=== PATIENT | female | born 1965 | race African-American/Black ===

== ENCOUNTER 2017-04-01 14:01 | Inpatient (IN) ==
[2017-04-01 15:11] LABS: Basophils % 0.2 % (0.0-0.8); Eosinophils # 0.1 10*3/uL (0.0-0.87); Eosinophils % 0.6 % (0.00-10.9); Hematocrit 39.8 VOL% (35.7-47.0); Hemoglobin 13.2 GM/DL (12.0-16.0); Immature Granulocytes % 0.5 %; Immature Granulocytes Absolute 0.09 #; Lymphocytes # 2.5 10*3/uL (1.4-4.0); Lymphocytes % 13.7 % (21.3-54.2); Mean Corpuscular HGB Conc 33.2 GM/DL (32-36); Mean Corpuscular Hemoglobin 30 PG (27-34); Mean Corpuscular Volume 91.3 FL (87-102); Mean Platelet Volume 9.1 FL (9.6-12.0); Monocytes # 1.2 10*3/uL (0.11-0.8); Monocytes % 6.7 % (1.7-12.7); Neutrophils # 14.5 10*3/uL (1.4-7.4); Neutrophils % 78.3 % (38.7-73.9); Platelet Count 276 T/CUMM (130-400); Red Blood Count 4.36 MC/CUMM (3.8-5.5); Red Cell Distribution Width 14.5 % (9.3-17.3); White Blood Count 18.5 T/CUMM (4-12)
[2017-04-01 15:31] LABS: Calcium 9.8 MG/DL (8.5-10.1); Osmolality,Calculated 272.1 MOS/KG (273-304); Potassium 4.5 MMOL/L (3.5-5.1)
[2017-04-01] MEDS ORDERED: SODIUM CHLORIDE 0.9% 1,000 ML IV STA (15:32)
[2017-04-01] MEDS ORDERED: METOPROLOL TARTRATE 5 MG/5 ML VIAL IV STA (15:34)
[2017-04-01] MEDS ORDERED: DILTIAZEM 50 MG/10 ML VIAL IV STA (15:36)
[2017-04-01] MEDS ORDERED: METOPROLOL TARTRATE 5 MG/5 ML VIAL IV ONE (15:41)
[2017-04-01] MEDS ORDERED: DILTIAZEM 50 MG/10 ML VIAL IV ONE (15:41)
--- NOTE | 2017-04-01 15:43 | Fluoroscopy Report ---
Referring Physician: Hill Kay Exam: FL injection GI tube Date: April 01, 2017 at 2:53 PM Reason: Check peg tube, leaking around site, possible infection Comparison: None Findings: 4 images of the abdomen were provided before and after injection of a gastrostomy tube with water-soluble contrast. There is contrast within the stomach. No extraluminal contrast is seen to suggest a leak. There is no evidence of bowel obstruction or free air. The renal shadows are largely obscured. No free air is identified. No acute osseous process is seen, but there is a right hip replacement. Scattered arterial calcification is noted. Impression: A gastrostomy tube was injected with contrast. There is no evidence of a leak on the provided images. PROCEDURE INTERPRETED AT [facility] DEPARTMENT OF RADIOLOGY Final Report Signed by: Dr. Adina Velasco
--- NOTE | 2017-04-01 15:45 | XRay Report ---
Referring Physician: Hill aKy Exam: XR chest 1V portable Date: April 01, 2017 at 2:58 PM Reason: Shortness of breath Comparison: Chest one view portable February 27, 2017 Findings: The cardiac silhouette is again mildly enlarged, and there is calcified plaque at the thoracic aorta. There are minimal scattered opacities within both lower lung zones. This likely represents atelectasis, but pneumonia is not excluded. No pneumothorax is identified. No acute osseous process is seen. Impression: 1. Mild cardiomegaly. 2. There are minimal scattered opacities within both lower lung zones. This likely represents atelectasis, but pneumonia is not excluded. PROCEDURE INTERPRETED AT [facility] DEPARTMENT OF RADIOLOGY Final Report Signed by: Dr. Adina Velasco
[2017-04-01] MEDS ORDERED: KETOROLAC 30 MG/1 ML VIAL ONE (16:02)
--- NOTE | 2017-04-01 16:33 | Hospitalist History & Physical ---
Assessment and Plan (1) Sepsis Status: Acute Assessment and plan: Impression: 1. Sepsis, likely source is infected gastrostomy tube. 2. Paroxysmal atrial fibrillation 3. 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 Persistent vegetative state Plan: Volume resuscitation. Cultures. IV antibiotics once cultures have been obtained. I discussed resuscitation with the sister. There is apparently some miscommunication with the emergency department staff. She has requested that the patient be a full code. Therefore, we will admit the patient to the ICU. This note was completed using TapMyBack voice recognition software. There may be waste removalist errors as a result. Current Visit: Yes Qualifiers: Sepsis type: sepsis due to unspecified organism Qualified Code(s): A41.9 - Sepsis, unspecified organism History of Present Illness Chief complaint: Sent out from intermediate for evaluation of tachycardia History of present illness: Ms. Loera is a 51 year old female She has a long history of bipolar disorder hypertension. 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 Following surgery, she had a stroke or intraoperative hemorrhage, and has been bedbound ever since. The sister gives a history, and reports that the patient was in the hospital for about 6 weeks following the craniotomy, and then came back to [place] for swing bed placement. Since then, she has been back and forth to a couple of different nursing homes, the [facility] bed twice, and here at this hospital several times for acute hospitalizations. Her last hospitalization here was back in January, when she was admitted for aspiration pneumonia. During that time, she also had atrial fibrillation. She was sent back to a different intermediate, and developed tachycardia and hypertension. The patient was sent to the emergency room at the sister's request. The sister is the closest relative in town; the patient's son is power of state attorney and he lives in [place]. The patient's baseline is that she is apparently able to recognize family members, and the sister says that the patient is conversant. Home Medications Medication Instructions Recorded Confirmed Type Albuterol/Ipratropium Neb [Duoneb] 3 ml RESP TX RT Q6H PRN 01/14/17 04/01/17 History Famotidine Tab [Pepcid Tab] 20 mg PEG BID 01/14/17 04/01/17 History Insulin Regular [HumuLIN R] See Protocol SUBCUT Q6HR unit 02/10/17 04/01/17 Rx Rivaroxaban [Xarelto] 20 mg PEG DAILY W/SUPPER tablet 02/10/17 04/01/17 Rx Acetaminophen [Mapap] 650 mg PO Q4H PRN 04/01/17 04/01/17 History Ascorbic Acid Tab [Vitamin C Tab] 1,000 mg PEG BID 04/01/17 04/01/17 History Digoxin Tab [Lanoxin Tab] 0.25 mg PEG DAILY@1300 04/01/17 04/01/17 History Metoprolol Tartrate 100 mg PEG 0900,1300,1700 04/01/17 04/01/17 History Phenytoin 200 mg PEG BID 04/01/17 04/01/17 History Zinc Oxide 40% Paste [Desitin 13% 1 applic TOP BID 04/01/17 04/01/17 History Paste] amLODIPine [Norvasc] 10 mg PEG DAILY 04/01/17 04/01/17 History Allergies Allergy/AdvReac Type Severity Reaction Status Date / Time No Known Allergies Allergy Verified 12/20/15 15:41 Medical,Surgical,& Family Hx - Medical History Cardio: History of: Cardiac Dysrhythmia, Hypertension No history of: CHF, CAD, [place], Pacemaker, PVD Psychological: History of: Bipolar Disorder, Schizophrenia Neurology: History of: Cerebrovascular Accident, Seizures No history of: TIA Endocrine: History of: Diabetes Mellitus (IDDM), Dyslipidemia Respiratory: History of: Asthma, COPD (Family reports that the patient was diagnosed with COPD prior to the cranio) Renal: No history of: Renal Failure Gastrointestinal: History of: GERD, Gastrointestinal Bleed (reported gi bleed and to have c scope in nov) Musculoskeletal: History of: Amputation, Back/Neck Problems (back pain) Hematology: History of: Anemia - Surgical History Cardiac Surgeries: Patient Denies: Cardiac Catheterization Thoracic Surgeries: Patient denies;: Lobectomy Neurologic Surgeries: Surgical HX of: Neurologic Surgery (Craniotomy for a cystic lesion complicated by intraoperative stroke) HEENT Surgeries: Patient denies: Tonsilectomy & Adenoidectomy Abdominal Surgeries: Patient denies: Abdominal Surgery Reproductive Surgeries: Surgical HX of;: Gynecologic Surgery, Hysterectomy Orthopedic Surgeries: Surgical HX of;: Total Hip Replacement (right) - Family History Family History: Reports;: Family Cancer, Family Diabetes, Family Heart Disease ( mother and father), Family Hypertension Denies;: Family Anesthesia Reaction, Family Psychiatric Problems, Family Stroke - Social History Smoking Status: Current every day smoker Review of systems: Unobtainable from the patient. Sister reports a history of bipolar disorder that has been poorly controlled and has required a couple of hospitalizations. Blood pressure had been adequately controlled prior to the craniotomy. No history of heart disease or diabetes. No history of kidney disease or liver disease. Exam - Constitutional Vitals: Period Temp Pulse Resp BP Sys/Wagner Pulse Ox Last 24 Hr 98.8 F 127 28 174/127 95 Vital signs are noted above. General: She is a obese black lady who does not interact with the external environment. HEENT: Pupils are round and reactive. Extraocular muscles are normal. Gaze is conjugate with a right-sided preference. Fundi were not examined. There is no nasal discharge. Mucous membranes are moist. Neck: Supple, without mass, bruit, or venous distention. Cardiac: Rhythm is regular and rapid. The carotids are normal. She has a 2/6 systolic ejection murmur. I do not hear a diastolic component. Peripheral pulses are intact. Lungs: Bilateral rhonchi without wheezing. Abdomen: Soft and nontender. Bowel sounds are present. PEG site is draining mucopurulent material around the tube. Rectal: Not done. Extremities: She is wearing bilateral heel protectors. Skin: No significant rash or lesion. Neurologic: She appears to have suffered some anoxic brain injury or a serious cerebral infarction. She exhibits a left-sided hemiparesis. Higher cortical functioning could not be tested. Results - Labs CBC & BMP: 04/01/17 14:22 04/01/17 14:22 - Diagnostic Findings Procedure: Chest x-ray: image reviewed by me (No large infiltrates on chest x- ray. She may have some small areas of atelectasis)
[2017-04-01 16:59] LABS: Apearance,Urine Slightly Hazy (Clear); Bacteria,Urine Occasional /HPF (Few); Bilirubin,Urine Negative (Negative); Blood, Urine Negative (Negative); Glucose,Urine (UA) Negative (Negative); Ketones,Urine Negative (Negative); Nitrite,Urine Negative (Negative); Protein,Urine 30 MG/DL; RBC,Urine 4 /HPF (0-4); Squamous Epithelial Cell,Urine Occasional /HPF (0-10); Urine Color Amber (Yellow); Urine Specific Gravity 1.018 (1.001-1.035); WBC,Urine 43 /HPF (0-6)
--- NOTE | 2017-04-01 17:44 | Emergency Department Note ---
IMarita Gwan, am scribing for, and in the presence of, Hill Kay M.D. 14:36. Eliza Romo Howard T, M.D., personally performed the services described in this documentation, ascribed by Asad Kirkland in my presence, and it is both accurate and complete [id number] . Arrival - Arrival Chief Complaint: PEG TUBE Stated Complaint: PEG tub ED Nursing Triage Note: Pt sent from [facility] for ?infection around PEG Tube site. [facility] [place] [facility] staff reported it was painful today attempting feeding to patient and also has bloody drainage around the PEG site. Mode of Arrival: Stretcher Limitations: No Limitations Source: Patient, Old Records Reviewed, RN Notes Reviewed Time Seen by Provider: 04/01/17 14:14 - History of Present Illness HPI Narrative: Pt is a 51 y/o female who was brought into the ED via EMS from [facility] in [place] for further evaluation of possible infection around Peg Tube. ID staff reported that pt has been complaining of pain around Peg Tube and evidence of blood draining from the site. Patient is a poor historian and is accompanied by family. Family stated that ID staff informed her that pt was unable to get medication or receive feeding prompting her to alert EMS. Family member confirmed that pt suffered a CVA and cyst on brain in 10/2016 causing her condition today. Pt has a PMHx of HTN, cardiac dysrhythmia, bipolar disorder, CVA, seizures, schizophrenia, IDDM, asthma, dyslipidemia, total right hip replacement and anemia. Onset (ago): hour(s) Consistency: constant Severity: moderate Allergies/Adverse Reactions: Allergies Allergy/AdvReac Type Severity Reaction Status Date / Time No Known Allergies Allergy Verified 12/20/15 15:41 Home Medications: Home Medications Medication Instructions Recorded Confirmed Type Albuterol/Ipratropium Neb [Duoneb] 3 ml RESP TX RT Q6H PRN 01/14/17 04/01/17 History Famotidine Tab [Pepcid Tab] 20 mg PEG BID 01/14/17 04/01/17 History Insulin Regular [HumuLIN R] See Protocol SUBCUT Q6HR unit 02/10/17 04/01/17 Rx Rivaroxaban [Xarelto] 20 mg PEG DAILY W/SUPPER tablet 02/10/17 04/01/17 Rx Acetaminophen [Mapap] 650 mg PO Q4H PRN 04/01/17 04/01/17 History Ascorbic Acid Tab [Vitamin C Tab] 1,000 mg PEG BID 04/01/17 04/01/17 History Digoxin Tab [Lanoxin Tab] 0.25 mg PEG DAILY@1300 04/01/17 04/01/17 History Metoprolol Tartrate 100 mg PEG 0900,1300,1700 04/01/17 04/01/17 History Phenytoin 200 mg PEG BID 04/01/17 04/01/17 History Zinc Oxide 40% Paste [Desitin 13% 1 applic TOP BID 04/01/17 04/01/17 History Paste] amLODIPine [Norvasc] 10 mg PEG DAILY 04/01/17 04/01/17 History Review of System - Review of System ROS unobtainable: due to mental status Medical,Surgical,& Family Hx - Medical History Cardio: History of: Cardiac Dysrhythmia, Hypertension No history of: CHF, CAD, [place], Pacemaker, PVD Psychological: History of: Bipolar Disorder, Schizophrenia Neurology: History of: Cerebrovascular Accident, Seizures No history of: TIA Endocrine: History of: Diabetes Mellitus (IDDM), Dyslipidemia Respiratory: History of: Asthma Comment Only: COPD (was marked but per family not sure) Renal: No history of: Renal Failure Gastrointestinal: History of: GERD, Gastrointestinal Bleed (reported gi bleed and to have c scope in nov) Musculoskeletal: History of: Amputation, Back/Neck Problems (back pain) Hematology: History of: Anemia - Surgical History Cardiac Surgeries: Patient Denies: Cardiac Catheterization Thoracic Surgeries: Patient denies;: Lobectomy HEENT Surgeries: Patient denies: Tonsilectomy & Adenoidectomy Abdominal Surgeries: Patient denies: Abdominal Surgery Reproductive Surgeries: Surgical HX of;: Gynecologic Surgery, Hysterectomy Orthopedic Surgeries: Surgical HX of;: Total Hip Replacement (right) - Family History Family History: Reports;: Family Cancer, Family Diabetes, Family Heart Disease ( mother and father), Family Hypertension Denies;: Family Anesthesia Reaction, Family Psychiatric Problems, Family Stroke - Social History Smoking Status: Current every day smoker Exam Vital Signs: Vital Signs Temperature 101.3 F H 04/01/17 14:10 Pulse Rate 149 H 04/01/17 17:00 Respiratory Rate 22 04/01/17 17:00 Blood Pressure 209/127 04/01/17 17:00 O2 Sat by Pulse Oximetry 90 L 04/01/17 17:00 - General General appearance: alert - Head Head exam: Present: atraumatic, normocephalic - Cardiovascular Cardiovascular exam: Present: tachycardia - Abdominal Exam Abdominal exam: Present: soft, other (peg tube present ) - Neurological Exam Neurological exam: Present: alert Course Course Narrative: Medical decision making: Patient admitted to hospital service for further evaluation and monitoring. Results - Labs CBC & BMP: 04/01/17 14:22 04/01/17 14:22 Lab Results: I have reviewed the patients labs Labs: Laboratory Tests 04/01/17 04/01/17 04/01/17 14:22 14:22 14:51 WBC 18.5 H RBC 4.36 Hgb 13.2 Hct 39.8 Plt Count 276 MPV 9.1 L Neut % (Auto) 78.3 H Lymph % (Auto) 13.7 L Neut # (Auto) 14.5 H Stearns # (Auto) 1.2 H Sodium 135 L Potassium 4.5 Chloride 98 Carbon Dioxide 28 Creatinine 0.30 L BUN/Creatinine Ratio 53.00 H Glucose 130 H POC Glucose 122 H Calculated Osmolality 272.1 L Calcium 9.8 Magnesium 2.0 Laboratory Tests 04/01/17 15:54 Lactic Acid 2.4 H - Diagnostic Findings Procedure: Chest x-ray: report reviewed by me (1. Mild cardiomegaly. 2. There are minimal scattered opacities within both lower lung zones. This likely represents atelectasis, but pneumonia is not excluded. ) Disposition Clinical Impression: PEG (percutaneous endoscopic gastrostomy) status, Bedridden, Sepsis Case discussed with: patient, patient's family Disposition: Disch/Xfer-Ipshort Term Hos Condition: Guarded Time of Disposition: 16:45
[2017-04-01] MEDS ORDERED: VANCOMYCIN INJ 1,250 MG in SODIUM CHLORIDE 0.9% 250 ML IV SCH (18:00)
[2017-04-01] MEDS ORDERED: ALBUTEROL/IPRATROPIUM 3 ML NEB RESP TX PRN (18:02)
[2017-04-01] MEDS: niCARdipine INJ 25 MG in SODIUM CHLORIDE 0.9% 240 ML IV SCH ×2 (18:19→23:15)
[2017-04-01] MEDS: VANCOMYCIN INJ 1,250 MG in SODIUM CHLORIDE 0.9% 250 ML IV SCH (18:41)
[2017-04-01] MEDS: SODIUM CHLORIDE 0.9% 1,000 ML IV SCH (18:59)
[2017-04-01] MEDS: ACETAMINOPHEN 325 MG TABLET PO PRN ×2 (19:04→23:42)
[2017-04-01] MEDS: INSULIN REGULAR 100 UNIT/ML SUBCUT SCH (19:05)
[2017-04-01] MEDS: RIVAROXABAN 20 MG TABLET PEG SCH (19:05)
[2017-04-01] MEDS: PIPERACILLIN/TAZOBACTAM 3,375 MG in SODIUM CHLORIDE 0.9% 100 ML IV SCH (20:22)
[2017-04-01] MEDS: FAMOTIDINE 20 MG TABLET PEG SCH (20:28)
[2017-04-01] MEDS: ASCORBIC ACID 500 MG TABLET PEG SCH (20:28)
[2017-04-01] MEDS: PHENYTOIN 100 MG/4 ML UDCUP PEG SCH (20:28)
[2017-04-01] MEDS ORDERED: MORPHINE 2 MG/1 ML SYRINGE ONE (22:49)
[2017-04-01] MEDS: MORPHINE 10 MG/1 ML VIAL IV PRN (22:52)
[2017-04-02] MEDS: INSULIN REGULAR 100 UNIT/ML SUBCUT SCH ×4 (01:52→19:09)
[2017-04-02] MEDS: VANCOMYCIN INJ 1,250 MG in SODIUM CHLORIDE 0.9% 250 ML IV SCH ×3 (02:50→17:06)
[2017-04-02] MEDS: SODIUM CHLORIDE 0.9% 1,000 ML IV SCH ×3 (02:52→13:01)
[2017-04-02] MEDS: PIPERACILLIN/TAZOBACTAM 3,375 MG in SODIUM CHLORIDE 0.9% 100 ML IV SCH ×2 (04:09→12:51)
[2017-04-02 05:21] LABS: Basophils % 0.1 % (0.0-0.8); Hematocrit 33.4 VOL% (35.7-47.0); Hemoglobin 10.7 GM/DL (12.0-16.0); Immature Granulocytes % 0.9 %; Immature Granulocytes Absolute 0.23 #; Mean Corpuscular Hemoglobin 30 PG (27-34); Mean Corpuscular Volume 93.3 FL (87-102); Mean Platelet Volume 9.4 FL (9.6-12.0); Monocytes # 1.8 10*3/uL (0.11-0.8); Neutrophils # 22.6 10*3/uL (1.4-7.4); Platelet Count 227 T/CUMM (130-400); Red Blood Count 3.58 MC/CUMM (3.8-5.5); Red Cell Distribution Width 14.8 % (9.3-17.3); White Blood Count 25.7 T/CUMM (4-12)
[2017-04-02 05:57] LABS: Albumin 2.2 G/DL (3.4-5.0); Bilirubin,Total 1.2 MG/DL (0.2-1.0); Calcium 8.5 MG/DL (8.5-10.1); Osmolality,Calculated 285.3 MOS/KG (273-304); Potassium 4.5 MMOL/L (3.5-5.1); Total Protein 5.3 G/DL (6.4-8.3)
[2017-04-02] MEDS ORDERED: MORPHINE 2 MG/1 ML SYRINGE ONE ×2 (06:01→15:28)
[2017-04-02] MEDS: MORPHINE 10 MG/1 ML VIAL IV PRN ×5 (06:05→23:26)
[2017-04-02 06:10] LABS: Band Neutrophils 4 % (0-10); Hypochromasia 1+; Lymphocytes 4 % (20-55); Ovalocytes Slight; Platelet Estimate Adequate; Segmented Neutrophils 86 % (50-85); Total Cells Counted 100
[2017-04-02] MEDS: ACETAMINOPHEN 325 MG TABLET PO PRN (06:42)
[2017-04-02] MEDS: ASCORBIC ACID 500 MG TABLET PEG SCH ×2 (09:47→20:27)
[2017-04-02] MEDS: FAMOTIDINE 20 MG TABLET PEG SCH ×2 (09:48→20:27)
[2017-04-02] MEDS: PHENYTOIN 100 MG/4 ML UDCUP PEG SCH ×2 (09:59→20:27)
--- NOTE | 2017-04-02 10:10 | Gastrointestinal Consult Note ---
Assessment and Plan (1) Skin infection at gastrostomy tube site Status: Acute Assessment and plan: Radiology is established that this feeding tube goes into the stomach and has no significant evidence of a leak. The feeding tube was placed approximately 6 months ago and appears to be relatively fresh. With the antibiotics previously given to this patient there is no evidence of cellulitis presently. Given the patient's increase in white blood cell count I suspect that this PEG tube may not be the actual source of the patient's leukocytosis. It appears to be back to normal again at this point and with I will rising white blood cell count I would not expect this to look as improved as it does. The feeding tube can be used for all nutritional, medication and hydration needs at this point. Thank you for consulting me. Please let me know if I can be of further help in the future. Current Visit: Yes (2) Attention to gastrostomy tube Status: Acute Assessment and plan: The PEG tube does not appear infected at this point it should be able to use continue sustaining a patient for medication hydration and nutritional needs, as mentioned above. Current Visit: Yes (3) Dysphagia Status: Acute Assessment and plan: The patient is in a persistent vegetative state likely due to the mass removed with the patient's craniotomy or from the craniotomy procedure itself. She requires feeding through a PEG tube and this is already been provided at [facility] approximately 6 months ago. Continue use of the PEG tube as prior to admission. Current Visit: Yes (4) Morbid obesity Status: Acute Assessment and plan: The patient appears to be quite sizable, a consultation from dietary may help trim down the amount of tube feeds given in order to lose some of this excess weight. Current Visit: Yes (5) Gastroesophageal reflux disease Status: Acute Assessment and plan: This patient has a history of reflux not surprising given her size. Continue treatment as needed for this condition. Current Visit: No History of Present Illness Chief complaint: Infected PEG tube now resolved History of present illness: Ms. Loera is a 51 year old female who is in a persistent vegetative state due to either complications or directly from a mass that required surgery at [facility] approximately 6 months ago requiring a 6 weeks hospitalization following the craniotomy. Patient was brought back to [facility] to a swing bed. Patient has a history of atrial fibrillation and has recurrent episodes of tachycardia and hypertension. She has a underlying history of bipolar disorder as well. Apparently she is brought to the hospital at this time with a septic type picture and cellulitis noted around the feeding tube. Radiology has already injected the tube with contrast which confirmed that it is in the stomach. Apparently there was a great deal of drainage from the tube yesterday and a marked cellulitis that has at this point responded to antibiotics. The PEG tube itself now spends well and appears to be normal with a scant amount of mucoid drainage around the tube, as is typically seen. The tube itself flushes well and aspirates gastric contents. It appears to be fully functional. White count today is up to 25.7 (from 18.5 on admission), while the hematocrit is dropped from 39.8 on admission to 33.4 with hydration. Unfortunately the PEG tube site was not cultured. Bilirubin and alkaline phosphatase are very slightly elevated at 1.2 and 205 respectively. The albumin is down to 2.2 indicating probable mild malnutrition. We do not know what the other findings of the upper endoscopy were from [facility] (? Gastritis or duodenitis?). We do not know if this patient has previously had a colonoscopy done, or whether she has diarrhea or constipation or abdominal pain at baseline. Home Medications Medication Instructions Recorded Confirmed Type Albuterol/Ipratropium Neb [Duoneb] 3 ml RESP TX RT Q6H PRN 01/14/17 04/01/17 History Famotidine Tab [Pepcid Tab] 20 mg PEG BID 01/14/17 04/01/17 History Insulin Regular [HumuLIN R] See Protocol SUBCUT Q6HR unit 02/10/17 04/01/17 Rx Rivaroxaban [Xarelto] 20 mg PEG DAILY W/SUPPER tablet 02/10/17 04/01/17 Rx Acetaminophen [Mapap] 650 mg PO Q4H PRN 04/01/17 04/01/17 History Ascorbic Acid Tab [Vitamin C Tab] 1,000 mg PEG BID 04/01/17 04/01/17 History Digoxin Tab [Lanoxin Tab] 0.25 mg PEG DAILY@1300 04/01/17 04/01/17 History Metoprolol Tartrate 100 mg PEG 0900,1300,1700 04/01/17 04/01/17 History Phenytoin 200 mg PEG BID 04/01/17 04/01/17 History Zinc Oxide 40% Paste [Desitin 13% 1 applic TOP BID 04/01/17 04/01/17 History Paste] amLODIPine [Norvasc] 10 mg PEG DAILY 04/01/17 04/01/17 History Allergies Allergy/AdvReac Type Severity Reaction Status Date / Time No Known Allergies Allergy Verified 12/20/15 15:41 Medical,Surgical,& Family Hx - Medical History Cardio: History of: Cardiac Dysrhythmia, Hypertension No history of: CHF, CAD, [place], Pacemaker, PVD Psychological: History of: Bipolar Disorder, Schizophrenia Neurology: History of: Cerebrovascular Accident, Seizures No history of: TIA Endocrine: History of: Diabetes Mellitus (IDDM), Dyslipidemia Respiratory: History of: Asthma Comment Only: COPD (was marked but per family not sure) Renal: No history of: Renal Failure Gastrointestinal: History of: GERD, Gastrointestinal Bleed (reported gi bleed and to have c scope in nov) Musculoskeletal: History of: Amputation, Back/Neck Problems (back pain) Hematology: History of: Anemia - Surgical History Cardiac Surgeries: Patient Denies: Cardiac Catheterization Thoracic Surgeries: Patient denies;: Lobectomy Neurologic Surgeries: Surgical HX of: Neurologic Surgery (Craniotomy for a cystic lesion complicated by intraoperative stroke) HEENT Surgeries: Patient denies: Tonsilectomy & Adenoidectomy Abdominal Surgeries: Patient denies: Abdominal Surgery Reproductive Surgeries: Surgical HX of;: Gynecologic Surgery, Hysterectomy Orthopedic Surgeries: Surgical HX of;: Total Hip Replacement (right) - Family History Family History: Reports;: Family Cancer, Family Diabetes, Family Heart Disease ( mother and father), Family Hypertension Denies;: Family Anesthesia Reaction, Family Psychiatric Problems, Family Stroke - Social History Smoking Status: Former smoker Frequency of Alcohol Use: None Type of Drug Use: None ROS unobtainable: due to mental status Exam - Constitutional Vitals: Period Temp Pulse Resp BP Sys/Wagner Pulse Ox Last 24 Hr 99.6 F-102.8 F 127-150 22-40 95-209/53-127 86-100 General appearance: morbidly obese - Head Head exam: Present: other (Craniotomy scars) - Eye Eye exam: Present: other (Eyes both appear to be with upward gaze preference each pointed to the temporal side laterally/disconjugate gaze) Pupils: Present: RANDALL - ENT ENT exam: Present: normal exam - Respiratory Respiratory exam: Present: clear to auscultation bilaterally. Absent: rales, rhonchi, stridor - Cardiovascular Cardiovascular exam: Present: regular rate and rhythm - GI/Abdominal GI/Abdominal exam: Present: normal bowel sounds, soft, other (Morbidly obese with a left upper abdominal lateral PEG tube noted. There is no erythema underneath this but a small amount of drainage that appears to be mucoid is associated with this. It does spin well and appears to be a fresh PEG tube). Absent: distended, tenderness, rebound - Extremities Exam Extremities exam: Present: edema (Slight) - Neurological Exam Neurological exam: Present: altered (Patient is in a persistent vegetative state /nonverbal) - Psychiatric Psychiatric exam: Present: flat affect - Skin Skin exam: Present: warm Results - Labs CBC & BMP: 04/02/17 04:39 04/02/17 04:39
[2017-04-02] MEDS ORDERED: FUROSEMIDE 40 MG/4 ML VIAL IV ONE (12:50)
[2017-04-02] MEDS: DIGOXIN 0.125 MG TABLET PEG SCH (12:51)
[2017-04-02] MEDS: amLODIPine 10 MG TABLET PEG SCH (12:52)
[2017-04-02] MEDS: METOPROLOL TARTRATE 100 MG TABLET PEG SCH ×2 (12:52→17:06)
--- NOTE | 2017-04-02 12:53 | Hospitalist Progress Note ---
Assessment and Plan (1) Sepsis Status: Acute Assessment and plan: The patient will be treated with vancomycin and meropenem for treatment of presumed septicemia. Blood cultures and urine cultures are still pending. I am going to change Cardene to Cardizem to improve control of heart rate and blood pressure. Tube feedings will be restarted, and the patient's right reducing medications will be restarted. Current Visit: Yes Qualifiers: Sepsis type: sepsis due to unspecified organism Qualified Code(s): A41.9 - Sepsis, unspecified organism (2) Morbid obesity Status: Acute Current Visit: Yes (3) PEG (percutaneous endoscopic gastrostomy) status Status: Acute Current Visit: Yes (4) History of stroke with current residual effects Status: Chronic Current Visit: No Hospitalist: Subjective Interval history: The patient was admitted to the hospital with sepsis syndrome. The patient has underlying atrial flutter tendency and she appears to be in a 3:1 block at this time. The patient's source of infection is not entirely clear. Dr. Crawford was concerned that it could be coming from the G-tube site but that looks much better today. Urine does appear to be cloudy and the patient has a history of upper respiratory infection with sputum cultures growing Pseudomonas resistant to Cipro and Levaquin. The patient is awake and unresponsive to the observer. Exam - Constitutional Vitals: Period Temp Pulse Resp BP Sys/Wagner Pulse Ox Last 24 Hr 98.1 F-102.8 F 108-150 18-40 95-209/53-138 86-100 Exam: Constitutional System: No distress. No tremulousness. The patient is awake but does not regard the observer Head: Normocephalic, atraumatic. Ears, Nose and Throat System: No evidence of Otitis or Mastoiditis. No epistaxis or discharge Eyes System: Pupils equal, round, and reactive. Extraocular muscles intact. Neck: Supple, without adenopathy, No jugular venous distention. No thyromegaly , neck mass, or prior surgery apparent. Respiratory System: Chest generally clear with minimal upper airway congestion to auscultation. Cardiovascular System: Heart with regular tachycardia at rate of 100-120; monitor shows supraventricular tachycardia. No murmur. GI System: Abdomen soft, nontender. Normo active bowel sounds present. PEG tube in place and functional with minimal drainage at site PEG tube Musculoskeletal System: limbs with no pedal edema. Full distal pulses. Results - Labs CBC & BMP: 04/02/17 04:39 04/02/17 04:39 Lab Results: I have reviewed the past 24 hour labs
[2017-04-02] MEDS: MEROPENEM 1,000 MG in SODIUM CHLORIDE 0.9% 100 ML IV SCH (13:00)
[2017-04-02] MEDS: RIVAROXABAN 20 MG TABLET PEG SCH (17:06)
[2017-04-03] MEDS: INSULIN REGULAR 100 UNIT/ML SUBCUT SCH ×5 (00:44→23:49)
[2017-04-03] MEDS: MEROPENEM 1,000 MG in SODIUM CHLORIDE 0.9% 100 ML IV SCH ×2 (01:13→13:31)
[2017-04-03] MEDS: VANCOMYCIN INJ 1,250 MG in SODIUM CHLORIDE 0.9% 250 ML IV SCH ×2 (02:14→12:03)
[2017-04-03] MEDS: SODIUM CHLORIDE 0.9% 1,000 ML IV SCH ×2 (03:12→22:50)
[2017-04-03] MEDS: ACETAMINOPHEN 325 MG TABLET PO PRN (04:00)
[2017-04-03 05:05] LABS: Basophils % 0.2 % (0.0-0.8); Eosinophils # 0.3 10*3/uL (0.0-0.87); Eosinophils % 1.8 % (0.00-10.9); Hemoglobin 9.3 GM/DL (12.0-16.0); Immature Granulocytes % 1.4 %; Immature Granulocytes Absolute 0.25 #; Lymphocytes # 0.7 10*3/uL (1.4-4.0); Lymphocytes % 4.2 % (21.3-54.2); Mean Corpuscular HGB Conc 32.1 GM/DL (32-36); Mean Corpuscular Hemoglobin 30 PG (27-34); Mean Corpuscular Volume 94.5 FL (87-102); Mean Platelet Volume 10.1 FL (9.6-12.0); Monocytes # 0.9 10*3/uL (0.11-0.8); Monocytes % 5.1 % (1.7-12.7); NRBC # 0.02 10*3/uL; Neutrophils # 15.3 10*3/uL (1.4-7.4); Neutrophils % 87.3 % (38.7-73.9); Platelet Count 218 T/CUMM (130-400); Red Blood Count 3.07 MC/CUMM (3.8-5.5); Red Cell Distribution Width 15.1 % (9.3-17.3); White Blood Count 17.5 T/CUMM (4-12)
[2017-04-03 05:34] LABS: Band Neutrophils 4 % (0-10); Lymphocytes 4 % (20-55); Segmented Neutrophils 88 % (50-85); Total Cells Counted 100
[2017-04-03 05:35] LABS: Microcytosis Slight
[2017-04-03 05:36] LABS: Platelet Estimate Adequate
[2017-04-03 06:03] LABS: Calcium 8.4 MG/DL (8.5-10.1); Osmolality,Calculated 289.8 MOS/KG (273-304); Potassium 3.6 MMOL/L (3.5-5.1); Troponin I Only 0.026 NG/ML (0.00-0.045)
[2017-04-03] MEDS: METOPROLOL TARTRATE 100 MG TABLET PEG SCH ×3 (10:21→17:32)
[2017-04-03] MEDS: PHENYTOIN 100 MG/4 ML UDCUP PEG SCH ×2 (10:21→20:42)
[2017-04-03] MEDS: amLODIPine 10 MG TABLET PEG SCH (10:22)
[2017-04-03] MEDS: FAMOTIDINE 20 MG TABLET PEG SCH ×2 (10:22→20:42)
[2017-04-03] MEDS: ASCORBIC ACID 500 MG TABLET PEG SCH ×2 (10:51→20:42)
--- NOTE | 2017-04-03 11:13 | Post Interventional Procedure ---
Pre-op diagnosis: Septicemia Post-op diagnosis: same Procedure: Unsuccessful attempt left PICC due to poor veins. Placement of left subclavian central line. Flouroscopy: 0.8 min Radiologist: Gaurav Medina Anesthesia: local Specimens: none sent Estimated blood loss: none Complications: none Condition: stable Assessment and Plan - Time spent with patient Time spent with patient: Less than 30 minutes
[2017-04-03] MEDS: DIGOXIN 0.125 MG TABLET PEG SCH (13:31)
--- NOTE | 2017-04-03 13:57 | Physician Query Form ---
CLICK EDIT DOCUMENT TO SELECT QUERY ANSWER --> OK --> SIGN Franca George RN Clinical [employer] W) [phone] (f) [phone] [email or web address]: Make your selection(s) from the choices in EACH section by typing an "x" and enter comments in the comment section. Please use your independent medical judgment in providing your response. This request does not imply that any particular answer is desired or expected. CLINICAL INDICATORS: (Providers should not edit this section) Based on documentation of "Persistent vegetative state" "appears to have suffered some anoxic brain injury" "patient is awake and unresponsive to the observer" "patient is awake but does not regard the observer" Based on the above, could you clarify the appropriate diagnosis, if significant , that supports the above abnormalities and additional evaluation, monitoring, and/or treatment rendered: ( ) Locked in state (X ) Does not have locked in state (X ) Other, please specify: Patient is more responsive today and was talkative. ( ) Clinically unable to determine COMMENTS: Use of terms such as suspected, likely, or probable (associated with a specific diagnosis that is being evaluated, monitored, or treated as if it exists) are acceptable and can be restated in the discharge summary if not ruled out. [facility]
--- NOTE | 2017-04-03 14:22 | Interventional Radiology Rpt ---
IR cvc insert nt >5, Consult to Interventional Rad, US guide vascular access Indication: Septicemia. No peripheral IV access. CENTRAL LINE Description: A formal timeout was performed. Maximum sterile barrier technique was used. Left arm was prepped and draped in sterile fashion. Sonographic evaluation shows a single left brachial vein to be patent and compressible but very deep to the skin. Under sonographic guidance, the vein was accessed with a micropuncture needle. Captured sonographic image documents position of the needle. However, the wire would not advance despite numerous attempts. 3 additional punctures were attempted, unsuccessfully. Sonographic evaluation of the left anterior upper chest demonstrates patent and compressible left subclavian vein. The left upper chest was prepped and draped in sterile fashion. 3 cc 1% lidocaine was administered subcutaneously. Under sonographic guidance, a micropuncture needle was advanced into the left subclavian vein. A captured sonographic image documents the position of the needle. Needle was exchanged over a wire for a vascular dilator. A triple lumen central line was advanced until the tip was at the RA-SVC junction. The catheter depth was noted to be 18 cm. The position of the catheter was confirmed with fluoroscopic guidance and an image stored in PACS. The wire was removed. All 3 ports of the central line were aspirated and flushed with heparinized saline. The device was secured with suture, and a sterile dressing applied. Fluoroscopy: 0.8 minutes. Impression: Unsuccessful placement of left arm PICC line, unable to advance wire. Left subclavian central line ready for immediate use. Routine catheter care. PROCEDURE INTERPRETED AT [facility] DEPARTMENT OF RADIOLOGY Final Report Signed by: Gaurav Medina M.D.
--- NOTE | 2017-04-03 14:59 | Hospitalist Progress Note ---
Assessment and Plan (1) Urinary tract infection Status: Acute Assessment and plan: Continue vancomycin and Merrem. Blood cultures negative. Current Visit: Yes Qualifiers: Urinary tract infection type: acute cystitis (2) History of stroke with current residual effects Status: Chronic Current Visit: No (3) Bedridden Status: Chronic Current Visit: Yes (4) Atelectasis of left lung Status: Acute Assessment and plan: Questionable atelectasis versus pneumonia on chest x-ray. Continue to monitor. Continue vancomycin and Merrem. Current Visit: No (5) Skin infection at gastrostomy tube site Status: Resolved Assessment and plan: The patient had irritation around the gastrostomy site without evidence of acute infection. 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 No acute events overnight. Case discussed with nursing staff. Labs reviewed. Urine culture with gram-positive cocci. We will plan to decrease Cardizem drip as tolerated and continue metoprolol and Norvasc for hypertension. As needed IV hydralazine ordered. Overall mental status is improving. Exam - Constitutional Vitals: Period Temp Pulse Resp BP Sys/Wagner Pulse Ox Last 24 Hr 98.1 F-102.6 F 77-106 16-51 109-172/54-110 91-99 Exam: Constitutional System: Mild distress. No tremulousness. The patient did not respond to verbal questioning from me. The nurses report improving mental status throughout the shift. Head: Normocephalic, atraumatic. Ears, Nose and Throat System: No pain or tenderness. No epistaxis or discharge Eyes System: Pupils equal, round, and reactive. Extraocular muscles intact. Neck: Supple, without adenopathy, No jugular venous distention. No thyromegaly, neck mass, or prior surgery apparent. Respiratory System: Chest coarse breath sounds to auscultation. Cardiovascular System: Heart with regular rate and rhythm. No murmur. GI System: Abdomen soft, nontender. Normo active bowel sounds present. Musculoskeletal System: limbs with mild pedal edema. Full distal pulses. Neurological System: Difficult to assess secondary to patient's general decline related to her acute infection Psychiatric System: Unable to assess Results - Labs CBC & BMP: 04/03/17 03:51 04/03/17 03:51 Lab Results: I have reviewed the past 24 hour labs - Diagnostic Findings Procedure: Chest x-ray: image reviewed by me, report reviewed by me
[2017-04-03] MEDS: RIVAROXABAN 20 MG TABLET PEG SCH (17:32)
[2017-04-03] MEDS: DESITIN 4OZ/NYSTATIN 15 GRAM MIXTURE PASTE TOP SCH (20:48)
[2017-04-04] MEDS: MEROPENEM 1,000 MG in SODIUM CHLORIDE 0.9% 100 ML IV SCH ×2 (00:15→12:18)
[2017-04-04] MEDS: SODIUM CHLORIDE 0.9% 1,000 ML IV SCH ×4 (00:59→22:05)
[2017-04-04 05:44] LABS: Basophils % 0.1 % (0.0-0.8); Eosinophils # 0.6 10*3/uL (0.0-0.87); Eosinophils % 3.3 % (0.00-10.9); Hematocrit 29.7 VOL% (35.7-47.0); Hemoglobin 9.4 GM/DL (12.0-16.0); Immature Granulocytes % 1.1 %; Lymphocytes # 1.3 10*3/uL (1.4-4.0); Lymphocytes % 6.8 % (21.3-54.2); Mean Corpuscular HGB Conc 31.6 GM/DL (32-36); Mean Corpuscular Hemoglobin 31 PG (27-34); Mean Corpuscular Volume 96.4 FL (87-102); Monocytes # 0.9 10*3/uL (0.11-0.8); Monocytes % 4.6 % (1.7-12.7); Neutrophils # 15.8 10*3/uL (1.4-7.4); Neutrophils % 84.1 % (38.7-73.9); Platelet Count 218 T/CUMM (130-400); Red Blood Count 3.08 MC/CUMM (3.8-5.5); White Blood Count 18.8 T/CUMM (4-12)
[2017-04-04 06:08] LABS: Band Neutrophils 4 % (0-10); Eosinophils 1 % (0-10); Hypochromasia 1+; Lymphocytes 2 % (20-55); Platelet Estimate Normal; Segmented Neutrophils 85 % (50-85); Total Cells Counted 100
[2017-04-04] MEDS: INSULIN REGULAR 100 UNIT/ML SUBCUT SCH ×3 (06:14→17:55)
[2017-04-04 06:18] LABS: Calcium 8.3 MG/DL (8.5-10.1); Osmolality,Calculated 291.3 MOS/KG (273-304); Potassium 3.7 MMOL/L (3.5-5.1)
--- NOTE | 2017-04-04 06:59 | EKG Report ---
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
[2017-04-04] MEDS: FAMOTIDINE 20 MG TABLET PEG SCH ×2 (08:45→20:11)
[2017-04-04] MEDS: PHENYTOIN 100 MG/4 ML UDCUP PEG SCH ×2 (08:45→20:11)
[2017-04-04] MEDS: METOPROLOL TARTRATE 100 MG TABLET PEG SCH ×3 (08:45→20:11)
[2017-04-04] MEDS: ASCORBIC ACID 500 MG TABLET PEG SCH ×2 (08:45→20:11)
[2017-04-04] MEDS: amLODIPine 10 MG TABLET PEG SCH (08:45)
[2017-04-04] MEDS: DESITIN 4OZ/NYSTATIN 15 GRAM MIXTURE PASTE TOP SCH ×2 (08:47→20:11)
[2017-04-04] MEDS ORDERED: SODIUM CHLORIDE 0.9% 500 ML IV ONE (10:39)
--- NOTE | 2017-04-04 11:13 | XRay Report ---
XR chest 1V portable Indication: Congestion Comparison: Chest x-ray dated April 01, 2017 Technique: Single frontal view of the chest Findings: Continued cardiomegaly. Left-sided central venous catheter tip not well visualized. Continued patchy opacification within the left lung base may reflect atelectasis or pneumonia. Prominence of the perihilar lung markings on the right may reflect interstitial pneumonia or interstitial pulmonary edema. Osseous and surrounding soft tissue structures appear grossly unchanged. IMPRESSION: As above. PROCEDURE INTERPRETED AT [facility] DEPARTMENT OF RADIOLOGY Final Report Signed by: Dr Felipe Jara
[2017-04-04] MEDS: hydrALAZINE 20 MG/1 ML VIAL IV PRN ×2 (11:47→18:10)
[2017-04-04] MEDS: DIGOXIN 0.125 MG TABLET PEG SCH (12:17)
--- NOTE | 2017-04-04 14:52 | Hospitalist Progress Note ---
Assessment and Plan (1) Urinary tract infection Status: Acute Assessment and plan: Continue penicillin and Merrem. Urine culture positive for enterococcus. Blood cultures negative. Current Visit: Yes Qualifiers: Urinary tract infection type: acute cystitis (2) History of stroke with current residual effects Status: Chronic Current Visit: No (3) Bedridden Status: Chronic Current Visit: Yes (4) Atelectasis of left lung Status: Acute Assessment and plan: Questionable atelectasis versus pneumonia on chest x-ray. Continue to monitor. Continue vancomycin and Merrem. Current Visit: No (5) Skin infection at gastrostomy tube site Status: Resolved Assessment and plan: The patient had irritation around the gastrostomy site without evidence of acute infection. 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 No acute events overnight. Case discussed with nursing staff. Labs reviewed. Urine culture with enterococcus sensitive to penicillin. MRSA screen negative. Will stop vancomycin. Renal function slightly worse today. IV fluids increased and bolus given. Urine output marginal and dark in color. Chest x-ray shows atelectasis versus pneumonia. Patient remains minimally responsive but arousable. Had an episode of A. fib with RVR requiring Cardizem drip. Exam - Constitutional Vitals: Period Temp Pulse Resp BP Sys/Wagner Pulse Ox Last 24 Hr 97.9 F-99.4 F 72-102 13-37 123-191/64-99 93-100 Exam: Constitutional System: Mild distress. No tremulousness. The patient did not respond to verbal questioning from me. Head: Normocephalic, atraumatic. Ears, Nose and Throat System: No pain or tenderness. No epistaxis or discharge Eyes System: Pupils equal, round, and reactive. Extraocular muscles intact. Neck: Supple, without adenopathy, No jugular venous distention. No thyromegaly, neck mass, or prior surgery apparent. Respiratory System: Chest coarse breath sounds to auscultation. Cardiovascular System: Heart with regular rate and rhythm. No murmur. GI System: Abdomen soft, nontender. Normo active bowel sounds present. Musculoskeletal System: limbs with mild pedal edema. Full distal pulses. Neurological System: Difficult to assess secondary to patient's general decline related to her acute infection Psychiatric System: Unable to assess Results - Labs CBC & BMP: 04/04/17 04:15 04/04/17 04:15 Lab Results: I have reviewed the past 24 hour labs - Diagnostic Findings Procedure: Chest x-ray: image reviewed by me, report reviewed by me
[2017-04-04] MEDS: PENICILLIN VK 500 MG TABLET PEG SCH (17:06)
[2017-04-04] MEDS: RIVAROXABAN 20 MG TABLET PEG SCH (17:06)
[2017-04-05] MEDS: INSULIN REGULAR 100 UNIT/ML SUBCUT SCH ×4 (01:01→17:53)
[2017-04-05] MEDS: PENICILLIN VK 500 MG TABLET PEG SCH ×4 (01:01→17:36)
[2017-04-05] MEDS: MEROPENEM 1,000 MG in SODIUM CHLORIDE 0.9% 100 ML IV SCH ×2 (01:01→13:42)
[2017-04-05 04:42] LABS: Basophils % 0.1 % (0.0-0.8); Eosinophils # 0.7 10*3/uL (0.0-0.87); Eosinophils % 4.7 % (0.00-10.9); Hematocrit 30.5 VOL% (35.7-47.0); Hemoglobin 9.9 GM/DL (12.0-16.0); Immature Granulocytes % 0.6 %; Immature Granulocytes Absolute 0.09 #; Lymphocytes # 1.3 10*3/uL (1.4-4.0); Mean Corpuscular HGB Conc 32.5 GM/DL (32-36); Mean Corpuscular Hemoglobin 30 PG (27-34); Mean Corpuscular Volume 93.3 FL (87-102); Mean Platelet Volume 9.8 FL (9.6-12.0); Monocytes % 6.9 % (1.7-12.7); Neutrophils # 11.8 10*3/uL (1.4-7.4); Neutrophils % 78.7 % (38.7-73.9); Platelet Count 236 T/CUMM (130-400); Red Blood Count 3.27 MC/CUMM (3.8-5.5); Red Cell Distribution Width 15.1 % (9.3-17.3)
[2017-04-05 05:06] LABS: Burr Cells Slight; Hypochromasia 1+; Platelet Estimate Adequate
[2017-04-05 05:07] LABS: Microcytosis Slight
[2017-04-05 05:11] LABS: Calcium 8.3 MG/DL (8.5-10.1); Osmolality,Calculated 294.4 MOS/KG (273-304); Potassium 3.9 MMOL/L (3.5-5.1)
[2017-04-05] MEDS: PHENYTOIN 100 MG/4 ML UDCUP PEG SCH ×2 (09:33→21:59)
[2017-04-05] MEDS: amLODIPine 10 MG TABLET PEG SCH (09:33)
[2017-04-05] MEDS: FAMOTIDINE 20 MG TABLET PEG SCH ×2 (09:34→21:59)
[2017-04-05] MEDS: METOPROLOL TARTRATE 100 MG TABLET PEG SCH (09:34)
[2017-04-05] MEDS: ASCORBIC ACID 500 MG TABLET PEG SCH ×2 (09:34→22:00)
[2017-04-05] MEDS: SODIUM CHLORIDE 0.9% 1,000 ML IV SCH ×2 (09:37→10:37)
[2017-04-05] MEDS: DESITIN 4OZ/NYSTATIN 15 GRAM MIXTURE PASTE TOP SCH (09:37)
--- NOTE | 2017-04-05 10:03 | Hospitalist Progress Note ---
Assessment and Plan (1) Urinary tract infection Status: Acute Assessment and plan: Continue penicillin and Merrem. Urine culture positive for enterococcus. Blood cultures negative. Current Visit: Yes Qualifiers: Urinary tract infection type: acute cystitis (2) History of stroke with current residual effects Status: Chronic Current Visit: No (3) Bedridden Status: Chronic Current Visit: Yes (4) Atelectasis of left lung Status: Acute Assessment and plan: Questionable atelectasis versus pneumonia on chest x-ray. Continue to monitor. Continue PCN and Merrem. Current Visit: No (5) Skin infection at gastrostomy tube site Status: Resolved Assessment and plan: The patient had irritation around the gastrostomy site without evidence of acute infection. 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 Case discussed with her sister at the bedside. Case also discussed with nursing staff. Patient continues to improve slowly. Chest x-ray shows left-sided pneumonia versus atelectasis. Urine culture noted. Cardizem drip weaned off. Beta-erin increased to 200 mg twice daily. Okay to transfer to the floor today. She appears to be back to baseline according to her sister. Exam - Constitutional Vitals: Period Temp Pulse Resp BP Sys/Wagner Pulse Ox Last 24 Hr 97.3 F-98.7 F 73-102 13-37 142-191/72-99 92-100 Exam: Constitutional System: No distress. No tremulousness. more responsive today. Head: Normocephalic, atraumatic. Ears, Nose and Throat System: No pain or tenderness. No epistaxis or discharge Eyes System: Pupils equal, round, and reactive. Extraocular muscles intact. Neck: Supple, without adenopathy, No jugular venous distention. Respiratory System: Chest coarse breath sounds to auscultation. Cardiovascular System: Heart with regular rate and rhythm. No murmur. GI System: Abdomen soft, nontender. Normo active bowel sounds present. Musculoskeletal System: limbs with mild pedal edema. Full distal pulses. Neurological System: Difficult to assess secondary to patient's general decline related to her acute infection Psychiatric System: Unable to assess Results - Labs CBC & BMP: 04/05/17 03:52 04/05/17 03:52 Lab Results: I have reviewed the past 24 hour labs - Diagnostic Findings Procedure: Chest x-ray: image reviewed by me, report reviewed by me
[2017-04-05] MEDS: predniSONE 20 MG TABLET PO SCH (10:31)
[2017-04-05] MEDS: METOPROLOL TARTRATE 100 MG TABLET PO SCH ×2 (10:32→22:00)
[2017-04-05] MEDS: ALBUMIN 25% 25 GM in PREMIX 1 EACH IV SCH ×2 (10:32→17:41)
[2017-04-05] MEDS: hydrALAZINE 20 MG/1 ML VIAL IV PRN (14:05)
[2017-04-05] MEDS: RIVAROXABAN 20 MG TABLET PEG SCH (17:36)
[2017-04-06] MEDS: INSULIN REGULAR 100 UNIT/ML SUBCUT SCH ×4 (01:40→17:44)
[2017-04-06] MEDS: DESITIN 4OZ/NYSTATIN 15 GRAM MIXTURE PASTE TOP SCH ×3 (01:40→22:15)
[2017-04-06] MEDS: PENICILLIN VK 500 MG TABLET PEG SCH ×4 (02:18→18:01)
[2017-04-06] MEDS: MEROPENEM 1,000 MG in SODIUM CHLORIDE 0.9% 100 ML IV SCH ×2 (02:39→13:33)
[2017-04-06] MEDS: ALBUMIN 25% 25 GM in PREMIX 1 EACH IV SCH (03:46)
[2017-04-06] MEDS: SODIUM CHLORIDE 0.9% 1,000 ML IV SCH ×3 (05:04→13:32)
[2017-04-06 08:30] LABS: Magnesium 2.2 MG/DL (1.8-2.4); Phosphorous 3.3 MG/DL (2.5-4.9)
[2017-04-06] MEDS: PHENYTOIN 100 MG/4 ML UDCUP PEG SCH ×2 (08:51→22:05)
[2017-04-06] MEDS: predniSONE 20 MG TABLET PO SCH (08:52)
[2017-04-06] MEDS: FAMOTIDINE 20 MG TABLET PEG SCH ×2 (08:52→22:05)
[2017-04-06] MEDS: amLODIPine 10 MG TABLET PEG SCH (08:52)
[2017-04-06] MEDS: ASCORBIC ACID 500 MG TABLET PEG SCH ×2 (08:52→22:05)
[2017-04-06] MEDS: METOPROLOL TARTRATE 100 MG TABLET PO SCH ×2 (08:52→22:05)
--- NOTE | 2017-04-06 17:57 | Hospitalist Progress Note ---
Assessment and Plan (1) Urinary tract infection Status: Acute Assessment and plan: Continue penicillin and Merrem. Urine culture positive for enterococcus. Blood cultures negative. Current Visit: Yes Qualifiers: Urinary tract infection type: acute cystitis (2) History of stroke with current residual effects Status: Chronic Current Visit: No (3) Bedridden Status: Chronic Current Visit: Yes (4) Atelectasis of left lung Status: Acute Assessment and plan: Questionable atelectasis versus pneumonia on chest x-ray. Continue to monitor. Continue PCN and Merrem. Current Visit: No (5) Skin infection at gastrostomy tube site Status: Resolved Assessment and plan: The patient had irritation around the gastrostomy site without evidence of acute infection. 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 No acute events overnight. Case discussed with nursing staff. Labs reviewed. Repeat labs ordered for tomorrow morning. May consider transfer back to [facility] on Augmentin tract infection and possible left lower lobe aspiration pneumonia. Exam - Constitutional Vitals: Period Temp Pulse Resp BP Sys/Wagner Pulse Ox Last 24 Hr 97.0 F-98.5 F 77-84 16-20 136-156/63-96 91-100 Exam: Constitutional System: No distress. No tremulousness. more responsive today. Head: Normocephalic, atraumatic. Ears, Nose and Throat System: No pain or tenderness. No epistaxis or discharge Eyes System: Pupils equal, round, and reactive. Extraocular muscles intact. Neck: Supple, without adenopathy, No jugular venous distention. Respiratory System: Chest coarse breath sounds to auscultation. Cardiovascular System: Heart with regular rate and rhythm. No murmur. GI System: Abdomen soft, nontender. Normo active bowel sounds present. Musculoskeletal System: limbs with mild pedal edema. Full distal pulses. Neurological System: Difficult to assess secondary to patient's general decline related to her acute infection Psychiatric System: Unable to assess Results - Labs CBC & BMP: 04/05/17 03:52 04/05/17 03:52 Lab Results: I have reviewed the past 24 hour labs
[2017-04-06] MEDS: RIVAROXABAN 20 MG TABLET PEG SCH (18:01)
[2017-04-07] MEDS: INSULIN REGULAR 100 UNIT/ML SUBCUT SCH ×4 (00:54→18:05)
[2017-04-07] MEDS: MEROPENEM 1,000 MG in SODIUM CHLORIDE 0.9% 100 ML IV SCH ×2 (01:24→13:40)
[2017-04-07] MEDS: PENICILLIN VK 500 MG TABLET PEG SCH ×4 (01:24→18:06)
[2017-04-07] MEDS: SODIUM CHLORIDE 0.9% 1,000 ML IV SCH ×6 (01:24→22:49)
[2017-04-07 07:17] LABS: Basophils % 0.2 % (0.0-0.8); Eosinophils # 0.4 10*3/uL (0.0-0.87); Hemoglobin 9.7 GM/DL (12.0-16.0); Immature Granulocytes % 1.3 %; Immature Granulocytes Absolute 0.18 #; Lymphocytes # 2.4 10*3/uL (1.4-4.0); Lymphocytes % 17.6 % (21.3-54.2); Mean Corpuscular HGB Conc 32.3 GM/DL (32-36); Mean Corpuscular Hemoglobin 31 PG (27-34); Mean Corpuscular Volume 94.6 FL (87-102); Mean Platelet Volume 9.2 FL (9.6-12.0); Monocytes # 1.4 10*3/uL (0.11-0.8); Neutrophils # 9.2 10*3/uL (1.4-7.4); Neutrophils % 67.9 % (38.7-73.9); Platelet Count 269 T/CUMM (130-400); Red Blood Count 3.17 MC/CUMM (3.8-5.5); Red Cell Distribution Width 15.1 % (9.3-17.3); White Blood Count 13.6 T/CUMM (4-12)
[2017-04-07 07:49] LABS: Calcium 8.3 MG/DL (8.5-10.1); Magnesium 2.1 MG/DL (1.8-2.4); Osmolality,Calculated 300.3 MOS/KG (273-304); Potassium 4.3 MMOL/L (3.5-5.1)
[2017-04-07] MEDS: METOPROLOL TARTRATE 100 MG TABLET PO SCH ×2 (09:06→21:36)
[2017-04-07] MEDS: predniSONE 20 MG TABLET PO SCH (09:06)
[2017-04-07] MEDS: FAMOTIDINE 20 MG TABLET PEG SCH ×2 (09:06→21:36)
[2017-04-07] MEDS: ASCORBIC ACID 500 MG TABLET PEG SCH ×2 (09:06→21:37)
[2017-04-07] MEDS: amLODIPine 10 MG TABLET PEG SCH (09:06)
[2017-04-07] MEDS: PHENYTOIN 100 MG/4 ML UDCUP PEG SCH ×2 (09:06→21:36)
[2017-04-07] MEDS: DESITIN 4OZ/NYSTATIN 15 GRAM MIXTURE PASTE TOP SCH ×2 (09:07→21:39)
--- NOTE | 2017-04-07 12:44 | Hospitalist Progress Note ---
Assessment and Plan (1) Urinary tract infection Status: Acute Assessment and plan: Continue penicillin and Merrem. Urine culture positive for enterococcus. Blood cultures negative. Current Visit: Yes Qualifiers: Urinary tract infection type: acute cystitis (2) History of stroke with current residual effects Status: Chronic Current Visit: No (3) Bedridden Status: Chronic Current Visit: Yes (4) Atelectasis of left lung Status: Acute Assessment and plan: Questionable atelectasis versus pneumonia on chest x-ray. Continue to monitor. Continue PCN and Merrem. Follow-up repeat chest x-ray 04/07/2017. Current Visit: No (5) Skin infection at gastrostomy tube site Status: Resolved Assessment and plan: The patient had irritation around the gastrostomy site without evidence of acute infection. 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 No acute events overnight. Case discussed with nursing staff. Labs reviewed. Patient undergoing treatment for left-sided pneumonia and urinary tract infection. Currently on penicillin and Merrem. Would recommend Augmentin for discharge. Repeat chest x-ray ordered for today. She remains afebrile. White blood cell count improving. Discharge plan would be to return to the residential with continued antibiotics until a full course is completed. Today is hospital day 6. Exam - Constitutional Vitals: Period Temp Pulse Resp BP Sys/Wagner Pulse Ox Last 24 Hr 96.3 F-98 F 69-78 18-20 149-184/73-98 98-100 Exam: Constitutional System: No distress. No tremulousness. more responsive today. Head: Normocephalic, atraumatic. Ears, Nose and Throat System: No pain or tenderness. No epistaxis or discharge Eyes System: Pupils equal, round, and reactive. Extraocular muscles intact. Neck: Supple, without adenopathy, No jugular venous distention. Respiratory System: Chest coarse breath sounds to auscultation. Cardiovascular System: Heart with regular rate and rhythm. No murmur. GI System: Abdomen soft, nontender. Normo active bowel sounds present. Musculoskeletal System: limbs with mild pedal edema. Full distal pulses. Neurological System: Difficult to assess secondary to patient's general decline related to her acute infection Psychiatric System: Unable to assess Results - Labs CBC & BMP: 04/07/17 07:02 04/07/17 07:02 Lab Results: I have reviewed the past 24 hour labs
--- NOTE | 2017-04-07 13:37 | XRay Report ---
XR chest 1V portable Indication: Pneumonia Comparison: Chest x-ray dated April 04, 2017 Technique: Frontal views of the chest Findings: Left-sided central venous catheter tip appears unchanged projects over the expected location of the mid left brachiocephalic vein. Continued mild cardiomegaly. Mild improvement in right perihilar and left basilar opacities. Chronic right hilar prominence. Osseous and surrounding soft tissue structures appear grossly unchanged. IMPRESSION: As above. PROCEDURE INTERPRETED AT [facility] DEPARTMENT OF RADIOLOGY Final Report Signed by: Dr Felipe Jara
[2017-04-07] MEDS: RIVAROXABAN 20 MG TABLET PEG SCH (18:05)
[2017-04-07] MEDS: hydrALAZINE 20 MG/1 ML VIAL IV PRN (21:36)
[2017-04-08] MEDS: MEROPENEM 1,000 MG in SODIUM CHLORIDE 0.9% 100 ML IV SCH ×2 (00:09→14:25)
[2017-04-08] MEDS: PENICILLIN VK 500 MG TABLET PEG SCH ×3 (00:09→11:26)
[2017-04-08] MEDS: INSULIN REGULAR 100 UNIT/ML SUBCUT SCH ×4 (00:42→18:39)
[2017-04-08] MEDS: SODIUM CHLORIDE 0.9% 1,000 ML IV SCH ×3 (01:12→18:39)
[2017-04-08] MEDS: LABETALOL 20 MG/4 ML SYRINGE IV PRN (01:12)
[2017-04-08] MEDS: PHENYTOIN 100 MG/4 ML UDCUP PEG SCH ×2 (08:20→22:11)
[2017-04-08] MEDS: ASCORBIC ACID 500 MG TABLET PEG SCH ×2 (08:20→22:11)
[2017-04-08] MEDS: predniSONE 20 MG TABLET PO SCH (08:21)
[2017-04-08] MEDS: amLODIPine 10 MG TABLET PEG SCH (08:21)
[2017-04-08] MEDS: METOPROLOL TARTRATE 100 MG TABLET PO SCH ×2 (08:21→22:11)
[2017-04-08] MEDS: FAMOTIDINE 20 MG TABLET PEG SCH ×2 (08:21→22:11)
[2017-04-08] MEDS: DESITIN 4OZ/NYSTATIN 15 GRAM MIXTURE PASTE TOP SCH ×2 (08:22→22:12)
--- NOTE | 2017-04-08 14:17 | Hospitalist Progress Note ---
Assessment and Plan (1) Diarrhea Status: Acute Assessment and plan: I am concerned about possibility of C. difficile. Patient should have the stool checked for C. difficile antigen if positive should be treated appropriately Current Visit: Yes (2) PEG (percutaneous endoscopic gastrostomy) status Status: Acute Assessment and plan: This is functional can continue to be used Current Visit: Yes (3) Sepsis Status: Acute Assessment and plan: Is culture negative sepsis of unknown cause. 8 was presented admission patient has been on antibiotics for a long time. Aspiration pneumonia has been a suspicion. Patient has a PEG tube 1 dysfunctional swallowing mechanism. Current Visit: Yes Qualifiers: Sepsis type: sepsis due to unspecified organism Qualified Code(s): A41.9 - Sepsis, unspecified organism (4) Functional quadriplegia Status: Chronic Assessment and plan: Continue supportive care. Current Visit: Yes (5) UTI (urinary tract infection) due to Enterococcus Status: Acute Assessment and plan: Patient has had enterococcus ECM unlikely to sensitive to penicillin. The patient is on meropenem does not need Pen-Vee K. Current Visit: Yes Hospitalist: Subjective Interval history: Patient has been seen and examined. This patient is incommunicado known history of organic mental syndrome. History that patient had to have a craniotomy for management of intracranial cyst about 6 months ago. Postsurgery patient was never able to function cognitively. She has been pretty much bedbound since. She has a PEG tube. Came into the hospital with a diagnosis of sepsis. It is thought that this could have been associated with an infection at the PEG tube site. Microbiology. Report says patient did isolate enterococcus for serum in the urine which is penicillin sensitive. Patient had been on meropenem and the noticed that he is that she is also been put on Pen- Vee K which in the presence of meropenem is very little to nothing. All other cultures were negative Exam - Constitutional Vitals: Period Temp Pulse Resp BP Sys/Wagner Pulse Ox Last 24 Hr 96.7 F-99.0 F 70-80 16-20 142-204/77-102 98-100 General appearance: morbidly obese - Head Head exam: Present: normocephalic, atraumatic - Eye Eye exam: Present: other (Patient not responding purposefully cannot follow commands. Pupils are reacting to light) - ENT ENT exam: Present: other (Unable to assess the oropharynx) - Respiratory Respiratory exam: Present: other (Bilateral crackles) - Cardiovascular Cardiovascular exam: Present: regular rate and rhythm - GI/Abdominal GI/Abdominal exam: Present: normal bowel sounds, other (PEG in place; noted large volume diarrheal stool that filled the diaper as well as all the surrounding perineum area) - Extremities Exam Extremities exam: Present: other (Mild/moderate edema) - Neurological Exam Neurological exam: Present: other (No cognitive) - Psychiatric Psychiatric exam: Present: other (Notice patient will not) Results - Labs CBC & BMP: 04/07/17 07:02 04/07/17 07:02 Lab Results: I have reviewed the past 24 hour labs
[2017-04-08] MEDS: RIVAROXABAN 20 MG TABLET PEG SCH (18:38)
[2017-04-09] MEDS: MEROPENEM 1,000 MG in SODIUM CHLORIDE 0.9% 100 ML IV SCH ×2 (02:05→14:00)
[2017-04-09] MEDS: INSULIN REGULAR 100 UNIT/ML SUBCUT SCH ×4 (06:00→18:17)
[2017-04-09] MEDS: PHENYTOIN 100 MG/4 ML UDCUP PEG SCH ×2 (08:36→21:49)
[2017-04-09] MEDS: METOPROLOL TARTRATE 100 MG TABLET PO SCH ×2 (08:36→21:49)
[2017-04-09] MEDS: amLODIPine 10 MG TABLET PEG SCH (08:36)
[2017-04-09] MEDS: FAMOTIDINE 20 MG TABLET PEG SCH ×2 (08:36→21:49)
[2017-04-09] MEDS: predniSONE 20 MG TABLET PO SCH (08:36)
[2017-04-09] MEDS: ASCORBIC ACID 500 MG TABLET PEG SCH ×2 (08:36→21:49)
[2017-04-09] MEDS: DESITIN 4OZ/NYSTATIN 15 GRAM MIXTURE PASTE TOP SCH ×2 (08:37→21:50)
[2017-04-09] MEDS: LABETALOL 20 MG/4 ML SYRINGE IV PRN ×3 (08:46→17:42)
--- NOTE | 2017-04-09 11:48 | Hospitalist Progress Note ---
Assessment and Plan (1) Diarrhea Status: Acute Assessment and plan: Negative for C. difficile. 4+ blood. Anticoagulation will be discontinued continue to observe. Current Visit: Yes (2) PEG (percutaneous endoscopic gastrostomy) status Status: Acute Assessment and plan: This is functional can continue to be used Current Visit: Yes (3) Sepsis Status: Acute Assessment and plan: Sepsis syndrome seems to have resolved at this time. Like to repeat a urine assessment after removing the Amador catheter today. If the urine is clean all systemic antibiotics will be discontinued. Should observe the patient today after discontinuing antibiotics and see how she is going to fair. If everything is okay patient can be [facility] Current Visit: Yes Qualifiers: Sepsis type: sepsis due to unspecified organism Qualified Code(s): A41.9 - Sepsis, unspecified organism (4) Functional quadriplegia Status: Chronic Assessment and plan: Continue supportive care. Current Visit: Yes (5) UTI (urinary tract infection) due to Enterococcus Status: Acute Assessment and plan: Patient has had enterococcus faeceum which though unlikely, is sensitive to penicillin. The patient is on meropenem does not need Pen-Vee K. I am repeating urinalysis and reflex cultures today. If urinalysis is clean discontinue the meropenem and observe the patient overnight. Current Visit: Yes Hospitalist: Subjective Interval history: Patient seen and examined and chart has been reviewed. Cystoscopy was in the room. She also had a few questions and appears that she can understand and tried to express but he takes a long time for her to express. Noted pink urine today reportedly started bleeding again. The checking of stool in the blood is 4+. Systemic anticoagulation and therefore very high risk for clinical hemorrhage. Exam - Constitutional Vitals: Period Temp Pulse Resp BP Sys/Wagner Pulse Ox Last 24 Hr 97 F-99.6 F 73-96 18-22 146-200/76-105 96-100 General appearance: morbidly obese - Head Head exam: Present: other (History of craniotomy) - Eye Eye exam: Present: other (No track with eyes well to do an exam) Pupils: Present: RANDALL - ENT ENT exam: Present: other (Poor gag reflex) - Neck Neck exam: Present: other (No bruits short thick neck) - Respiratory Respiratory exam: Present: other (Crackles in the dependent part of the lungs with poor inspiratory pool) - Cardiovascular Cardiovascular exam: Present: regular rate and rhythm (Regular rhythm on nurse monitoring shows sinus rhythm) - GI/Abdominal GI/Abdominal exam: Present: normal bowel sounds, soft - Extremities Exam Extremities exam: Present: other (Rise with) - Neurological Exam Neurological exam: Present: other (Patient is organic mental syndrome very poor communicative skills) - Psychiatric Psychiatric exam: Present: other (Regarding mental syndrome) - Skin Skin exam: Present: normal color, warm, dry, other (Pedal edema, mild) Results - Labs CBC & BMP: 04/07/17 07:02 04/07/17 07:02 Lab Results: I have reviewed the past 24 hour labs
[2017-04-09 12:26] LABS: Apearance,Urine CLEAR (Clear); Bilirubin,Urine Negative (Negative); Blood, Urine Moderate mg/dL (Negative); Glucose,Urine (UA) Negative (Negative); Ketones,Urine Negative (Negative); Mucus,Urine Occasional /LPF (Occasional); Nitrite,Urine Negative (Negative); Protein,Urine Negative; RBC,Urine 128 /HPF (0-4); Urine Color Straw (Yellow); Urine Specific Gravity 1.005 (1.001-1.035); Urine Urobilinogen < 2.0 EU/DL (0.2-1.0); WBC,Urine 3 /HPF (0-6)
[2017-04-09] MEDS: hydrALAZINE 20 MG/1 ML VIAL IV PRN (17:01)
[2017-04-10] MEDS: MEROPENEM 1,000 MG in SODIUM CHLORIDE 0.9% 100 ML IV SCH ×2 (01:43→13:00)
[2017-04-10] MEDS: SODIUM CHLORIDE 0.9% 1,000 ML IV SCH ×2 (03:12→07:40)
[2017-04-10 05:39] LABS: Basophils % 0.3 % (0.0-0.8); Eosinophils # 0.3 10*3/uL (0.0-0.87); Hematocrit 28.3 VOL% (35.7-47.0); Hemoglobin 9.1 GM/DL (12.0-16.0); Immature Granulocytes % 2.2 %; Immature Granulocytes Absolute 0.22 #; Lymphocytes # 2.8 10*3/uL (1.4-4.0); Lymphocytes % 28.3 % (21.3-54.2); Mean Corpuscular HGB Conc 32.2 GM/DL (32-36); Mean Corpuscular Hemoglobin 30 PG (27-34); Mean Corpuscular Volume 92.8 FL (87-102); Mean Platelet Volume 8.9 FL (9.6-12.0); Monocytes # 0.8 10*3/uL (0.11-0.8); Monocytes % 8.4 % (1.7-12.7); Neutrophils # 5.7 10*3/uL (1.4-7.4); Neutrophils % 57.8 % (38.7-73.9); Platelet Count 334 T/CUMM (130-400); Red Blood Count 3.05 MC/CUMM (3.8-5.5); Red Cell Distribution Width 15.5 % (9.3-17.3)
[2017-04-10 06:19] LABS: Albumin 2.2 G/DL (3.4-5.0); Bilirubin,Total 0.4 MG/DL (0.2-1.0); Calcium 8.5 MG/DL (8.5-10.1); Osmolality,Calculated 297.4 MOS/KG (273-304); Potassium 4.5 MMOL/L (3.5-5.1)
[2017-04-10 06:20] LABS: Magnesium 2.4 MG/DL (1.8-2.4); Phosphorous 5.2 MG/DL (2.5-4.9); Prealbumin 16.1 MG/DL (20-40)
[2017-04-10] MEDS: INSULIN REGULAR 100 UNIT/ML SUBCUT SCH ×3 (07:41→12:07)
[2017-04-10] MEDS: PHENYTOIN 100 MG/4 ML UDCUP PEG SCH (08:58)
[2017-04-10] MEDS: METOPROLOL TARTRATE 100 MG TABLET PO SCH (08:58)
[2017-04-10] MEDS: amLODIPine 10 MG TABLET PEG SCH (08:58)
[2017-04-10] MEDS: ASCORBIC ACID 500 MG TABLET PEG SCH (08:58)
[2017-04-10] MEDS: predniSONE 20 MG TABLET PO SCH (08:59)
[2017-04-10] MEDS: FAMOTIDINE 20 MG TABLET PEG SCH (08:59)
[2017-04-10] MEDS: DESITIN 4OZ/NYSTATIN 15 GRAM MIXTURE PASTE TOP SCH (08:59)
[2017-04-10 12:03] VITALS: BP 162/86
--- NOTE | 2017-04-10 13:17 | Discharge Summary ---
<Connor Menezes - Last Filed: 04/10/17 13:12> Diagnosis - Discharge Diagnosis (1) Diarrhea Status: Acute (2) PEG (percutaneous endoscopic gastrostomy) status Status: Acute (3) Sepsis Status: Acute (4) Functional quadriplegia Status: Chronic (5) UTI (urinary tract infection) due to Enterococcus Status: Acute Specialty Discharge - Follow Up or Referrals Discharge Plan - Discharge Data Disposition: Disch/Xfer to Snf Condition at Discharge: Stable Discharge Diet: heart healthy Activity: resume usual activities as tolerated Hygiene: other (Needs help with activities of daily living 19/06) Weight Bearing at Discharge: non-weight bearing Contact your physician if you experience:: fever over 101, Nausea/Vomiting, Shortness of breath, Bleeding - Discharge Medications New methylPREDNISolone DOSEPAK [Medrol Dosepak] 4 mg PO DIRECTED #1 pack Continue Famotidine Tab [Pepcid Tab] 20 mg PEG BID Insulin Regular [HumuLIN R] See Protocol SUBCUT Q6HR unit Metoprolol Tartrate 100 mg PEG 0900,1300,1700 Ascorbic Acid Tab [Vitamin C Tab] 1,000 mg PEG BID Phenytoin 200 mg PEG BID Acetaminophen [Mapap] 650 mg PO Q4H PRN PRN Reason: Fever, Headache, Mild Pain amLODIPine [Norvasc] 10 mg PEG DAILY Albuterol/Ipratropium Neb [Duoneb] 3 ml RESP TX RT Q6H PRN PRN Reason: Shortness Of Breath/Wheezing Zinc Oxide 40% Paste [Desitin 40% Paste] 1 applic TOP BID Digoxin Tab [Lanoxin Tab] 0.25 mg PEG DAILY@1300 Discontinued Rivaroxaban [Xarelto] 20 mg PEG DAILY W/SUPPER tablet - Follow Up or Referral - Forms/Instructions Instructions: Urinary Tract Infection in Women (DC), Sepsis (DC) Exam - Constitutional Vitals: Period Temp Pulse Resp BP Sys/Wagner Pulse Ox Last 24 Hr 97.0 F-97.6 F 69-80 20-22 149-225/67-118 99-100 General appearance: over weight - Head Head exam: Present: other (History of craniotomy 6 months ago) - Eye Eye exam: Present: other (Gazes into space and does not fall,) Pupils: Present: RANDALL - ENT ENT exam: Present: other (Final control upper airway secretions) - Neck Neck exam: Present: other (Unable to assess) - Respiratory Respiratory exam: Present: clear to auscultation bilaterally - Cardiovascular Cardiovascular exam: Present: regular rate and rhythm, other (And is controlled on the monitor) - GI/Abdominal GI/Abdominal exam: Present: normal bowel sounds, soft, other (PEG tube in place) - Extremities Exam Extremities exam: Present: other (Immobile needing help with activities of daily living 24 hours 7 days a week) - Neurological Exam Neurological exam: Present: other (Times will answer simple questions but most times would not respond to you since the brain surgery) - Psychiatric Psychiatric exam: Present: other (As above) - Skin Skin exam: Present: warm, dry, other (Mild pedal edema) Discharge Results Procedures and tests throughout hospitalization: Pending Orders 04/09/17 Occult Blood, Stool Routine Labs on day of discharge: Labs from last 24 hours 04/10/17 04/10/17 04/10/17 11:23 07:19 04:44 WBC RBC Hgb Hct MCV MCH MCHC RDW Plt Count MPV Neut % (Auto) Lymph % (Auto) [place] % (Auto) Eos % (Auto) Baso % (Auto) Neut # (Auto) Lymph # (Auto) [place] # (Auto) Eos # (Auto) Baso # (Auto) Immature Gran % Nucleated RBC % Immature Gran # Nucleated RBCs # Sodium 140 Potassium 4.5 Chloride 109 H Carbon Dioxide 22 Anion Gap 13.5 BUN 65 H Creatinine 1.50 H GFR Calculation 48 BUN/Creatinine Ratio 43.00 H Glucose 98 POC Glucose 119 H 130 H Calculated Osmolality 297.4 Calcium 8.5 Phosphorus Magnesium Total Bilirubin 0.40 AST 12 ALT 14 Alkaline Phosphatase 119 H Total Protein 5.0 L Albumin 2.2 L Globulin 2.8 Albumin/Globulin Ratio 0.7 L Prealbumin 04/10/17 04/10/17 04/10/17 04:44 04:44 00:18 WBC 10.0 RBC 3.05 L Hgb 9.1 L Hct 28.3 L MCV 92.8 MCH 30 MCHC 32.2 RDW 15.5 Plt Count 334 D MPV 8.9 L Neut % (Auto) 57.8 Lymph % (Auto) 28.3 [place] % (Auto) 8.4 Eos % (Auto) 3.0 Baso % (Auto) 0.3 Neut # (Auto) 5.7 Lymph # (Auto) 2.8 [place] # (Auto) 0.8 Eos # (Auto) 0.3 Baso # (Auto) 0.0 Immature Gran % 2.2 Nucleated RBC % 0.0 Immature Gran # 0.22 Nucleated RBCs # 0.00 Sodium Potassium Chloride Carbon Dioxide Anion Gap BUN Creatinine GFR Calculation BUN/Creatinine Ratio Glucose POC Glucose 111 H Calculated Osmolality Calcium Phosphorus 5.2 H Magnesium 2.4 Total Bilirubin AST ALT Alkaline Phosphatase Total Protein Albumin Globulin Albumin/Globulin Ratio Prealbumin 16.1 L 04/09/17 18:04 WBC RBC Hgb Hct MCV MCH MCHC RDW Plt Count MPV Neut % (Auto) Lymph % (Auto) [place] % (Auto) Eos % (Auto) Baso % (Auto) Neut # (Auto) Lymph # (Auto) [place] # (Auto) Eos # (Auto) Baso # (Auto) Immature Gran % Nucleated RBC % Immature Gran # Nucleated RBCs # Sodium Potassium Chloride Carbon Dioxide Anion Gap BUN Creatinine GFR Calculation BUN/Creatinine Ratio Glucose POC Glucose 143 H Calculated Osmolality Calcium Phosphorus Magnesium Total Bilirubin AST ALT Alkaline Phosphatase Total Protein Albumin Globulin Albumin/Globulin Ratio Prealbumin DS: Provider Date of admission: 04/01/17 16:46 Primary care physician: . No PCP Attending physician on admission: Hector Armendariz MD Consults: 04/01/17 16:50 Consult to Case Mgmt/Social Srvs [CONS] Routine Reason for Case Mgmt/Social Srvs: Rehab 04/01/17 17:15 Consult to Pharmacy [CONS] Routine Reason for Pharmacy Consult: Adjust Meds Renal Funct Dose/Manage Vancomycin 04/01/17 21:22 Consult to Dietitian [CONS] Routine Reason for Dietitian: Dietary Consult Consult Comment: admit screen 04/03/17 14:24 Consult to Dietitian [CONS] Routine Reason for Dietitian: TF-Initiate/Manage Discharging clinician: Connor Menezes MD <Issac Keller - Last Filed: 04/10/17 14:13> Hospital Course - Hospital Course Hospital Course: This is a poor unfortunate 51 year-old chronically ill -[place] female that presented to the ED at [facility] on from [facility] in [place] evaluation of possible infection around PEG tube. The patient has a rather extensive and complex medical condition significant for hypertension, bipolar disease, cerebral vascular accident, seizures, asthma, dyslipidemia, anemia, and schizophrenia. Apparently, the patient was noted to have excessive drainage, multiple bloody stools, and pain around the PEG insertion site. In addition, the [facility] staff experienced difficulty administering medication. She was sent to the ED for further evaluation. At the time of presentation, the patient was found to be grossly hypertensive with a blood pressure noted at 209/127, tachycardic with a heart rate at 149, and febrile with a temperature of 101.3. Her white blood cell count was noted at 18.5 and her lactic acid was noted at 2.4. Chest radiograph revealed mild cardiomegaly minimal scattered opacities within both lower lung zones; which likely represented atelectasis, but pneumonia could not excluded. The patient was subsequently admitted to critical care for continuation of care. A gastroenterology consult was obtained and the patient was evaluated. The PEG was deemed appropriate for use. Volume resuscitation, antibiotic therapy, and antihypertensive agents were initiated. The patient's condition improved. She was transferred to the telemetry unit on 04/05. Her condition has remained stable. Today, we feel that she is appropriate for discharge back to [facility] for continuation of care.
== END 2017-04-10 14:20 | DRG 871 ==
LOC: N.ED 14:01 → N.EDINP 16:46 → SUATTDRO 16:46 → N.ICU 17:07 → N.TELEN 04-05 16:05
PROVIDERS: ADMIT Internal Medicine; ATTEND Internal Medicine Infectious Disease

== ENCOUNTER 2018-01-08 19:54 | Inpatient (IN) ==
[2018-01-08] MEDS ORDERED: FUROSEMIDE 40 MG/4 ML VIAL IV STA (20:28)
[2018-01-08] MEDS ORDERED: cefTRIAXone 1,000 MG in SODIUM CHLORIDE 0.9% 100 ML IV STA (20:28)
[2018-01-08] MEDS ORDERED: ALBUTEROL/IPRATROPIUM 3 ML NEB RESP TX STA (20:28)
[2018-01-08] MEDS ORDERED: hydrALAZINE 20 MG/1 ML VIAL IV STA (20:38)
[2018-01-08] MEDS ORDERED: FUROSEMIDE 40 MG/4 ML VIAL ONE (22:11)
[2018-01-08] MEDS ORDERED: cefTRIAXone 1,000 MG VIAL ONE (22:31)
[2018-01-08] MEDS ORDERED: SODIUM CHLORIDE 0.9% 100 ML IV ONE (22:32)
[2018-01-08 22:44] LABS: Basophils % 0.2 % (0.0-0.8); Eosinophils % 0.3 % (0.00-10.9); Hematocrit 38.5 VOL% (35.7-47.0); Hemoglobin 12.5 GM/DL (12.0-16.0); Immature Granulocytes % 0.6 %; Lymphocytes # 2.5 10*3/uL (1.4-4.0); Lymphocytes % 16.1 % (21.3-54.2); Mean Corpuscular HGB Conc 32.5 GM/DL (32-36); Mean Corpuscular Hemoglobin 30 PG (27-34); Mean Corpuscular Volume 93.2 FL (87-102); Mean Platelet Volume 10.4 FL (9.6-12.0); Monocytes # 0.9 10*3/uL (0.11-0.8); Monocytes % 5.8 % (1.7-12.7); Neutrophils # 11.9 10*3/uL (1.4-7.4); Platelet Count 199 T/CUMM (130-400); Red Blood Count 4.13 MC/CUMM (3.8-5.5); Red Cell Distribution Width 12.8 % (9.3-17.3); White Blood Count 15.5 T/CUMM (4-12)
[2018-01-08 22:57] LABS: Alanine Aminotransferase 22 U/L (13-56); Albumin 3.6 G/DL (3.4-5.0); Alkaline Phosphatase 377 U/L (45-117); Amylase 56 U/L (25-115); Aspartate Amino Transferase 17 U/L (0-37); Bilirubin,Total < 0.39 MG/DL (0.2-1.0); Blood Urea Nitrogen 19 MG/DL (7-18); Calcium 9.2 MG/DL (8.5-10.1); Glucose 151 MG/DL (74-106); Lactic Acid 0.9 MMOL/L (0.4-2.0); Osmolality,Calculated 285.3 MOS/KG (273-304); Potassium 3.7 MMOL/L (3.5-5.1); Sodium 141 MMOL/L (136-145)
[2018-01-08 23:51] LABS: Sedimentation Rate-Westergren 64 MM/HR (0-30)
[2018-01-08] MEDS ORDERED: ALBUTEROL 2.5 MG/3 ML NEB RESP TX PRN (23:56)
[2018-01-09] MEDS: ALBUTEROL/IPRATROPIUM 3 ML NEB RESP TX SCH ×4 (00:20→19:35)
[2018-01-09] MEDS ORDERED: LEVOFLOXACIN INJ 150 ML IV ONE (00:53)
[2018-01-09] MEDS: SODIUM CHLORIDE 0.9% 1,000 ML IV SCH ×2 (00:56→14:44)
[2018-01-09] MEDS: LEVOFLOXACIN INJ 750 MG in PREMIX 1 EACH IV SCH (01:00)
[2018-01-09] MEDS ORDERED: hydrALAZINE 20 MG/1 ML VIAL IV PRN (01:23)
[2018-01-09] MEDS ORDERED: GLUCAGON 1 MG VIAL IM PRN (01:25)
[2018-01-09] MEDS ORDERED: DEXTROSE 50% 25 GM/50 ML VIAL IV PRN (01:25)
[2018-01-09] MEDS ORDERED: ONDANSETRON 4 MG/2 ML VIAL IV PRN (01:47)
[2018-01-09] MEDS ORDERED: ACETAMINOPHEN 325 MG TABLET PEG PRN (01:47)
[2018-01-09 02:21] LABS: Amorphous Crystals,Urine Occasional /HPF (Few); Apearance,Urine CLEAR (Clear); Bilirubin,Urine Negative (Negative); Blood, Urine Negative (Negative); Glucose,Urine (UA) Negative (Negative); Ketones,Urine Negative (Negative); Mucus,Urine Occasional /LPF (Occasional); Nitrite,Urine Negative (Negative); Protein,Urine Negative; Squamous Epithelial Cell,Urine Occasional /HPF (0-10); Urine Color Yellow (Yellow); Urine Specific Gravity 1.008 (1.001-1.035); Urine Urobilinogen < 2.0 EU/DL (0.2-1.0); WBC,Urine 1 /HPF (0-6)
[2018-01-09 02:50] LABS: Basophils % 0.3 % (0.0-0.8); Eosinophils % 0.1 % (0.00-10.9); Hematocrit 36.1 VOL% (35.7-47.0); Hemoglobin 12.2 GM/DL (12.0-16.0); Immature Granulocytes % 0.4 %; Immature Granulocytes Absolute 0.07 #; Lymphocytes # 2.8 10*3/uL (1.4-4.0); Lymphocytes % 17.9 % (21.3-54.2); Mean Corpuscular HGB Conc 33.8 GM/DL (32-36); Mean Corpuscular Hemoglobin 31 PG (27-34); Mean Corpuscular Volume 90.7 FL (87-102); Mean Platelet Volume 10.1 FL (9.6-12.0); Monocytes # 1.2 10*3/uL (0.11-0.8); Monocytes % 7.6 % (1.7-12.7); Neutrophils # 11.6 10*3/uL (1.4-7.4); Neutrophils % 73.7 % (38.7-73.9); Platelet Count 195 T/CUMM (130-400); Red Blood Count 3.98 MC/CUMM (3.8-5.5); Red Cell Distribution Width 12.8 % (9.3-17.3); White Blood Count 15.7 T/CUMM (4-12)
[2018-01-09 03:24] LABS: Alanine Aminotransferase 25 U/L (13-56); Albumin 3.1 G/DL (3.4-5.0); Alkaline Phosphatase 330 U/L (45-117); Aspartate Amino Transferase 16 U/L (0-37); Bilirubin,Total < 0.39 MG/DL (0.2-1.0); Blood Urea Nitrogen 19 MG/DL (7-18); Calcium 9.1 MG/DL (8.5-10.1); Glucose 164 MG/DL (74-106); Osmolality,Calculated 286.3 MOS/KG (273-304); Potassium 3.5 MMOL/L (3.5-5.1); Sodium 141 MMOL/L (136-145); Total Protein 6.8 G/DL (6.4-8.3); Troponin I Only < 0.015 NG/ML (0.00-0.045)
[2018-01-09 04:17] LABS: Hepatitis A Ab IgM Result Negative (Negative); Hepatitis B Core IgM Quant 0.16 Index; Hepatitis B Core IgM Result Negative (Negative); Hepatitis B Surface Ag Quant < 0.10 Index; Hepatitis B Surface Ag Result Negative (Negative); Hepatitis C Virus Ab Quant 0.06 Index; Hepatitis C Virus Ab Result Negative (Negative)
[2018-01-09] MEDS: INSULIN LISPRO 100 UNIT/ML SUBCUT SCH ×3 (08:00→18:31)
[2018-01-09] MEDS: ENOXAPARIN 40 MG/0.4 ML SYRINGE SUBCUT SCH (08:53)
[2018-01-09] MEDS ORDERED: PALIPERIDONE 3 MG TABLET PO PRN (12:40)
[2018-01-09] MEDS: METOPROLOL TARTRATE 100 MG TABLET PEG SCH ×2 (14:09→17:23)
[2018-01-09] MEDS: DIGOXIN 0.25 MG TABLET PEG SCH (14:10)
[2018-01-09] MEDS: PHENYTOIN 100 MG/4 ML UDCUP PEG SCH (21:52)
[2018-01-09] MEDS: PRAVASTATIN 20 MG TABLET PO SCH (21:52)
[2018-01-10] MEDS: ALBUTEROL/IPRATROPIUM 3 ML NEB RESP TX SCH ×4 (00:10→20:12)
[2018-01-10] MEDS: INSULIN LISPRO 100 UNIT/ML SUBCUT SCH ×4 (02:36→17:57)
[2018-01-10] MEDS: LEVOFLOXACIN INJ 750 MG in PREMIX 1 EACH IV SCH (03:05)
[2018-01-10 07:25] LABS: Basophils % 0.2 % (0.0-0.8); Eosinophils # 0.2 10*3/uL (0.0-0.87); Eosinophils % 1.8 % (0.00-10.9); Hematocrit 32.1 VOL% (35.7-47.0); Hemoglobin 10.8 GM/DL (12.0-16.0); Immature Granulocytes % 0.5 %; Immature Granulocytes Absolute 0.06 #; Lymphocytes # 2.8 10*3/uL (1.4-4.0); Mean Corpuscular HGB Conc 33.6 GM/DL (32-36); Mean Corpuscular Hemoglobin 31 PG (27-34); Mean Corpuscular Volume 90.7 FL (87-102); Mean Platelet Volume 10.1 FL (9.6-12.0); Monocytes # 0.9 10*3/uL (0.11-0.8); Monocytes % 8.4 % (1.7-12.7); Neutrophils # 7.1 10*3/uL (1.4-7.4); Neutrophils % 64.1 % (38.7-73.9); Platelet Count 168 T/CUMM (130-400); Red Blood Count 3.54 MC/CUMM (3.8-5.5); Red Cell Distribution Width 12.9 % (9.3-17.3)
[2018-01-10 07:49] LABS: Osmolality,Calculated 282.3 MOS/KG (273-304); Potassium 3.6 MMOL/L (3.5-5.1)
[2018-01-10] MEDS: ENOXAPARIN 40 MG/0.4 ML SYRINGE SUBCUT SCH (11:00)
[2018-01-10] MEDS: amLODIPine 10 MG TABLET PEG SCH (11:00)
[2018-01-10] MEDS: PRAVASTATIN 20 MG TABLET PO SCH ×2 (11:00→21:59)
[2018-01-10] MEDS: METOPROLOL TARTRATE 100 MG TABLET PEG SCH ×3 (11:00→19:12)
[2018-01-10] MEDS: PHENYTOIN 100 MG/4 ML UDCUP PEG SCH ×2 (11:00→21:59)
[2018-01-10] MEDS: CITALOPRAM 40 MG TABLET PEG SCH (11:00)
[2018-01-10] MEDS: DIGOXIN 0.25 MG TABLET PEG SCH (15:56)
[2018-01-10] MEDS ORDERED: POLYETHYLENE GLYCOL POWDER 17 GM PACK PO PRN (16:52)
[2018-01-10 17:13] LABS: Troponin I Only < 0.015 NG/ML (0.00-0.045)
[2018-01-11] MEDS: ALBUTEROL/IPRATROPIUM 3 ML NEB RESP TX SCH ×4 (01:17→19:18)
[2018-01-11] MEDS: LEVOFLOXACIN INJ 750 MG in PREMIX 1 EACH IV SCH (03:00)
[2018-01-11] MEDS: INSULIN LISPRO 100 UNIT/ML SUBCUT SCH ×4 (04:39→17:35)
[2018-01-11 07:25] LABS: Basophils % 0.2 % (0.0-0.8); Eosinophils # 0.2 10*3/uL (0.0-0.87); Eosinophils % 2.4 % (0.00-10.9); Hematocrit 30.4 VOL% (35.7-47.0); Hemoglobin 10.3 GM/DL (12.0-16.0); Immature Granulocytes % 0.4 %; Immature Granulocytes Absolute 0.04 #; Lymphocytes # 2.8 10*3/uL (1.4-4.0); Lymphocytes % 29.5 % (21.3-54.2); Mean Corpuscular HGB Conc 33.9 GM/DL (32-36); Mean Corpuscular Hemoglobin 31 PG (27-34); Mean Corpuscular Volume 90.2 FL (87-102); Mean Platelet Volume 10.1 FL (9.6-12.0); Monocytes # 0.8 10*3/uL (0.11-0.8); Monocytes % 8.3 % (1.7-12.7); Neutrophils # 5.7 10*3/uL (1.4-7.4); Neutrophils % 59.2 % (38.7-73.9); Platelet Count 165 T/CUMM (130-400); Red Blood Count 3.37 MC/CUMM (3.8-5.5); Red Cell Distribution Width 12.6 % (9.3-17.3); White Blood Count 9.6 T/CUMM (4-12)
[2018-01-11 07:39] LABS: Calcium 8.9 MG/DL (8.5-10.1); Osmolality,Calculated 280.1 MOS/KG (273-304); Potassium 3.9 MMOL/L (3.5-5.1)
[2018-01-11] MEDS: amLODIPine 10 MG TABLET PEG SCH (09:41)
[2018-01-11] MEDS: METOPROLOL TARTRATE 100 MG TABLET PEG SCH ×3 (09:41→19:30)
[2018-01-11] MEDS: CITALOPRAM 40 MG TABLET PEG SCH (09:41)
[2018-01-11] MEDS: PRAVASTATIN 20 MG TABLET PO SCH ×2 (09:41→21:22)
[2018-01-11] MEDS: PHENYTOIN 100 MG/4 ML UDCUP PEG SCH ×2 (09:41→21:22)
[2018-01-11] MEDS: ENOXAPARIN 40 MG/0.4 ML SYRINGE SUBCUT SCH (09:41)
[2018-01-11] MEDS ORDERED: LACTULOSE 20 GM/30 ML UDCUP PO PRN (13:25)
[2018-01-11] MEDS: DIGOXIN 0.25 MG TABLET PEG SCH (13:28)
[2018-01-12] MEDS: INSULIN LISPRO 100 UNIT/ML SUBCUT SCH ×2 (00:02→06:28)
[2018-01-12] MEDS: ALBUTEROL/IPRATROPIUM 3 ML NEB RESP TX SCH ×2 (00:02→07:15)
[2018-01-12] MEDS: LEVOFLOXACIN INJ 750 MG in PREMIX 1 EACH IV SCH (03:38)
[2018-01-12 05:59] LABS: Basophils % 0.3 % (0.0-0.8); Eosinophils # 0.3 10*3/uL (0.0-0.87); Eosinophils % 2.8 % (0.00-10.9); Hemoglobin 9.8 GM/DL (12.0-16.0); Immature Granulocytes % 0.5 %; Immature Granulocytes Absolute 0.05 #; Lymphocytes # 3.5 10*3/uL (1.4-4.0); Lymphocytes % 36.6 % (21.3-54.2); Mean Corpuscular HGB Conc 33.8 GM/DL (32-36); Mean Corpuscular Hemoglobin 31 PG (27-34); Mean Corpuscular Volume 90.6 FL (87-102); Mean Platelet Volume 10.2 FL (9.6-12.0); Monocytes # 0.9 10*3/uL (0.11-0.8); Monocytes % 8.9 % (1.7-12.7); Neutrophils # 4.8 10*3/uL (1.4-7.4); Neutrophils % 50.9 % (38.7-73.9); Platelet Count 160 T/CUMM (130-400); Red Cell Distribution Width 12.6 % (9.3-17.3); White Blood Count 9.5 T/CUMM (4-12)
[2018-01-12 06:31] LABS: Calcium 8.8 MG/DL (8.5-10.1); Osmolality,Calculated 277.4 MOS/KG (273-304); Potassium 3.7 MMOL/L (3.5-5.1)
[2018-01-12 08:13] VITALS: BP 163/93
[2018-01-12] MEDS: SODIUM CHLORIDE 0.9% 1,000 ML IV SCH (08:19)
[2018-01-12] MEDS: ENOXAPARIN 40 MG/0.4 ML SYRINGE SUBCUT SCH (08:50)
[2018-01-12] MEDS: METOPROLOL TARTRATE 100 MG TABLET PEG SCH (08:50)
[2018-01-12] MEDS: amLODIPine 10 MG TABLET PEG SCH (08:50)
[2018-01-12] MEDS: CITALOPRAM 40 MG TABLET PEG SCH (08:50)
[2018-01-12] MEDS: PRAVASTATIN 20 MG TABLET PO SCH (08:51)
[2018-01-12] MEDS: PHENYTOIN 100 MG/4 ML UDCUP PEG SCH (08:51)
== END 2018-01-12 11:20 | DRG 871 ==
LOC: EDUNIT# → N.ED 19:54 → N.EDINP 23:48 → N.5E 01-09 00:08
PROVIDERS: ADMIT Internal Medicine; ATTEND Internal Medicine

== ENCOUNTER 2018-04-01 18:57 | Inpatient (IN) ==
[2018-04-01] MEDS ORDERED: SODIUM CHLORIDE 0.9% 500 ML IV STA (19:05)
[2018-04-01 19:41] LABS: Basophils # 0.1 10*3/uL (0.0-0.2); Basophils % 0.5 % (0.0-0.8); Eosinophils # 0.5 10*3/uL (0.0-0.87); Eosinophils % 4.5 % (0.00-10.9); Hemoglobin 12.3 GM/DL (12.0-16.0); Immature Granulocytes % 0.2 %; Immature Granulocytes Absolute 0.02 #; Lymphocytes # 4.9 10*3/uL (1.4-4.0); Lymphocytes % 46.4 % (21.3-54.2); Mean Corpuscular HGB Conc 32.4 GM/DL (32-36); Mean Corpuscular Hemoglobin 30 PG (27-34); Mean Corpuscular Volume 93.4 FL (87-102); Mean Platelet Volume 10.1 FL (9.6-12.0); Monocytes # 0.7 10*3/uL (0.11-0.8); Neutrophils # 4.4 10*3/uL (1.4-7.4); Neutrophils % 41.4 % (38.7-73.9); Platelet Count 202 T/CUMM (130-400); Red Blood Count 4.07 MC/CUMM (3.8-5.5); Red Cell Distribution Width 12.8 % (9.3-17.3); White Blood Count 10.6 T/CUMM (4-12)
[2018-04-01 19:50] LABS: PT Patient Result 10.3 SECS
[2018-04-01 20:03] LABS: Alanine Aminotransferase 17 U/L (13-56); Albumin 3.2 G/DL (3.4-5.0); Alkaline Phosphatase 270 U/L (45-117); Aspartate Amino Transferase 11 U/L (0-37); Bilirubin,Total < 0.39 MG/DL (0.2-1.0); Blood Urea Nitrogen 14 MG/DL (7-18); Glucose 91 MG/DL (74-106); Osmolality,Calculated 279.4 MOS/KG (273-304); Potassium 4.3 MMOL/L (3.5-5.1); Sodium 140 MMOL/L (136-145); Total Protein 7.1 G/DL (6.4-8.3); Troponin I Only < 0.015 NG/ML (0.00-0.045)
[2018-04-01 20:05] LABS: Ammonia 22 UMOL/L (11-32)
[2018-04-01 20:56] LABS: Apearance,Urine CLOUDY (Clear); Bacteria,Urine Occasional /HPF (Few); Bilirubin,Urine Negative (Negative); Blood, Urine Small mg/dL (Negative); Glucose,Urine (UA) Negative (Negative); Ketones,Urine Negative (Negative); Mucus,Urine Occasional /LPF (Occasional); Nitrite,Urine Negative (Negative); Protein,Urine Negative; RBC,Urine 4 /HPF (0-4); Renal Epithelial Cells,Urine Occasional /HPF (<1); Squamous Epithelial Cell,Urine Few /HPF (0-10); Urine Color Yellow (Yellow); Urine Specific Gravity 1.013 (1.001-1.035); Urine Urobilinogen < 2.0 EU/DL (0.2-1.0); WBC,Urine 28 /HPF (0-6)
[2018-04-01] MEDS ORDERED: cefTRIAXone 1,000 MG in SODIUM CHLORIDE 0.9% 100 ML IV STA (21:14)
[2018-04-01 21:46] LABS: Phenytoin (Dilantin) 35.8 UG/ML (10-20)
[2018-04-01] MEDS ORDERED: ACETAMINOPHEN 325 MG TABLET PO PRN (23:18)
[2018-04-01] MEDS ORDERED: PALIPERIDONE 3 MG TABLET PO PRN (23:28)
[2018-04-01] MEDS ORDERED: ALBUTEROL/IPRATROPIUM 3 ML NEB RESP TX PRN (23:28)
[2018-04-02] MEDS: SODIUM CHLORIDE 0.9% 1,000 ML IV SCH ×2 (04:59→21:37)
[2018-04-02 08:17] LABS: Basophils % 0.4 % (0.0-0.8); Eosinophils # 0.4 10*3/uL (0.0-0.87); Eosinophils % 3.7 % (0.00-10.9); Hematocrit 35.2 VOL% (35.7-47.0); Hemoglobin 11.6 GM/DL (12.0-16.0); Immature Granulocytes % 0.3 %; Immature Granulocytes Absolute 0.03 #; Lymphocytes # 4.4 10*3/uL (1.4-4.0); Lymphocytes % 43.9 % (21.3-54.2); Mean Corpuscular Hemoglobin 30 PG (27-34); Mean Corpuscular Volume 92.1 FL (87-102); Mean Platelet Volume 10.5 FL (9.6-12.0); Monocytes # 0.6 10*3/uL (0.11-0.8); Monocytes % 5.8 % (1.7-12.7); Neutrophils # 4.6 10*3/uL (1.4-7.4); Neutrophils % 45.9 % (38.7-73.9); Platelet Count 203 T/CUMM (130-400); Red Blood Count 3.82 MC/CUMM (3.8-5.5)
[2018-04-02 08:44] LABS: Calcium 9.3 MG/DL (8.5-10.1); Osmolality,Calculated 277.4 MOS/KG (273-304)
[2018-04-02] MEDS: ASPIRIN EC 81 MG TABLET PO SCH (10:09)
[2018-04-02] MEDS: METOPROLOL TARTRATE 50 MG TABLET PEG SCH ×3 (10:09→17:29)
[2018-04-02] MEDS: CITALOPRAM 40 MG TABLET PO SCH (10:09)
[2018-04-02] MEDS: PRAVASTATIN 20 MG TABLET PO SCH ×2 (10:09→21:37)
[2018-04-02] MEDS: PANTOPRAZOLE 40 MG TABLET PO SCH (10:09)
[2018-04-02] MEDS: ASCORBIC ACID 500 MG TABLET PEG SCH ×2 (10:09→21:37)
[2018-04-02] MEDS: amLODIPine 10 MG TABLET PEG SCH (10:09)
[2018-04-02] MEDS: ENOXAPARIN 40 MG/0.4 ML SYRINGE SUBCUT SCH (10:10)
[2018-04-02] MEDS: DIGOXIN 0.125 MG TABLET PEG SCH (14:36)
[2018-04-02 20:47] LABS: Acetaminophen < 2.0 UG/ML (10-30); Salicylate < 2.8 MG/DL (2.8-20)
[2018-04-03] MEDS ORDERED: cefTRIAXone 1,000 MG in SYRINGE 1 EACH IV SCH (09:00)
[2018-04-03] MEDS: CITALOPRAM 40 MG TABLET PO SCH (11:09)
[2018-04-03] MEDS: PRAVASTATIN 20 MG TABLET PO SCH ×2 (11:09→21:29)
[2018-04-03] MEDS: METOPROLOL TARTRATE 50 MG TABLET PEG SCH ×3 (11:09→16:06)
[2018-04-03] MEDS: ASCORBIC ACID 500 MG TABLET PEG SCH ×2 (11:09→21:29)
[2018-04-03] MEDS: amLODIPine 10 MG TABLET PEG SCH (11:09)
[2018-04-03] MEDS: PANTOPRAZOLE 40 MG TABLET PO SCH (11:09)
[2018-04-03] MEDS: ASPIRIN EC 81 MG TABLET PO SCH (11:09)
[2018-04-03] MEDS: ENOXAPARIN 40 MG/0.4 ML SYRINGE SUBCUT SCH (11:10)
[2018-04-03] MEDS: SODIUM CHLORIDE 0.9% 1,000 ML IV SCH (14:15)
[2018-04-03] MEDS: DIGOXIN 0.125 MG TABLET PEG SCH (14:16)
[2018-04-03] MEDS: AMPICILLIN 500 MG CAPSULE PO SCH ×3 (14:17→16:18)
[2018-04-04] MEDS ORDERED: hydrALAZINE 20 MG/1 ML VIAL IV PRN (00:17)
[2018-04-04] MEDS: AMPICILLIN 500 MG CAPSULE PO SCH ×3 (01:03→13:23)
[2018-04-04] MEDS: SODIUM CHLORIDE 0.9% 1,000 ML IV SCH ×2 (04:40→21:30)
[2018-04-04 07:49] LABS: Calcium 8.7 MG/DL (8.5-10.1); Osmolality,Calculated 282.1 MOS/KG (273-304); Potassium 3.7 MMOL/L (3.5-5.1); Prealbumin 12.6 MG/DL (20-40)
[2018-04-04] MEDS: ENOXAPARIN 40 MG/0.4 ML SYRINGE SUBCUT SCH (10:03)
[2018-04-04] MEDS: ASPIRIN EC 81 MG TABLET PO SCH (10:03)
[2018-04-04] MEDS: ASCORBIC ACID 500 MG TABLET PEG SCH ×2 (10:03→21:30)
[2018-04-04] MEDS: METOPROLOL TARTRATE 50 MG TABLET PEG SCH ×3 (10:03→17:03)
[2018-04-04] MEDS: CITALOPRAM 40 MG TABLET PO SCH (10:03)
[2018-04-04] MEDS: amLODIPine 10 MG TABLET PEG SCH (10:03)
[2018-04-04] MEDS: PRAVASTATIN 20 MG TABLET PO SCH ×2 (10:03→21:30)
[2018-04-04] MEDS: PANTOPRAZOLE 40 MG TABLET PO SCH (10:19)
[2018-04-04] MEDS ORDERED: LACOSAMIDE INJ 200 MG in SODIUM CHLORIDE 0.9% 50 ML IV SCH (12:00)
[2018-04-04] MEDS: DIGOXIN 0.125 MG TABLET PEG SCH (13:23)
[2018-04-04] MEDS: AMPICILLIN 500 MG CAPSULE PEG SCH ×2 (17:03→21:30)
[2018-04-05 07:48] LABS: Basophils % 0.2 % (0.0-0.8); Eosinophils # 0.2 10*3/uL (0.0-0.87); Eosinophils % 2.6 % (0.00-10.9); Hematocrit 33.4 VOL% (35.7-47.0); Hemoglobin 11.1 GM/DL (12.0-16.0); Immature Granulocytes % 0.4 %; Immature Granulocytes Absolute 0.03 #; Lymphocytes # 3.3 10*3/uL (1.4-4.0); Lymphocytes % 39.8 % (21.3-54.2); Mean Corpuscular HGB Conc 33.2 GM/DL (32-36); Mean Corpuscular Hemoglobin 31 PG (27-34); Mean Platelet Volume 10.2 FL (9.6-12.0); Monocytes # 0.7 10*3/uL (0.11-0.8); Monocytes % 8.5 % (1.7-12.7); Neutrophils # 4.1 10*3/uL (1.4-7.4); Neutrophils % 48.5 % (38.7-73.9); Platelet Count 170 T/CUMM (130-400); Red Blood Count 3.59 MC/CUMM (3.8-5.5); Red Cell Distribution Width 12.7 % (9.3-17.3); White Blood Count 8.4 T/CUMM (4-12)
[2018-04-05 08:16] LABS: Calcium 8.5 MG/DL (8.5-10.1); Osmolality,Calculated 284.8 MOS/KG (273-304); Potassium 4.2 MMOL/L (3.5-5.1)
[2018-04-05] MEDS ORDERED: LACOSAMIDE 50 MG TABLET PEG SCH ×2 (09:00)
[2018-04-05] MEDS: CITALOPRAM 40 MG TABLET PO SCH (11:09)
[2018-04-05] MEDS: amLODIPine 10 MG TABLET PEG SCH (11:09)
[2018-04-05] MEDS: METOPROLOL TARTRATE 50 MG TABLET PEG SCH ×2 (11:10→14:03)
[2018-04-05] MEDS: PRAVASTATIN 20 MG TABLET PO SCH (11:10)
[2018-04-05] MEDS: ENOXAPARIN 40 MG/0.4 ML SYRINGE SUBCUT SCH (11:10)
[2018-04-05] MEDS: ASPIRIN EC 81 MG TABLET PO SCH (11:10)
[2018-04-05] MEDS: PANTOPRAZOLE 40 MG TABLET PO SCH (11:10)
[2018-04-05] MEDS: ASCORBIC ACID 500 MG TABLET PEG SCH (11:10)
[2018-04-05] MEDS: AMPICILLIN 500 MG CAPSULE PEG SCH ×2 (11:11→14:02)
[2018-04-05 12:32] VITALS: BP 150/93
[2018-04-05] MEDS: DIGOXIN 0.125 MG TABLET PEG SCH (14:02)
[2018-04-05] MEDS: SODIUM CHLORIDE 0.9% 1,000 ML IV SCH (14:03)
== END 2018-04-05 15:15 | DRG 57 ==
LOC: EDBD → EDUNIT# → N.ED 18:57 → N.EDINP 18:57 → SUATTDRO 04-02 02:18 → N.2E 04-02 03:26
PROVIDERS: ADMIT Hospitalist; ATTEND Internal Medicine

== ENCOUNTER 2020-12-10 06:21 | Inpatient (IN) ==
[2020-12-10] MEDS ORDERED: SODIUM CHLORIDE 0.9% 1,000 ML IV STA ×3 (06:28→07:43)
[2020-12-10] MEDS ORDERED: HYDROCORTISONE 100 MG VIAL IV STA (06:29)
[2020-12-10] MEDS ORDERED: PIPERACILLIN/TAZOBACTAM 3,375 MG VIAL IV ONE (06:36)
[2020-12-10 07:08] LABS: Basophils # 0.1 10*3/uL (0.0-0.2); Basophils % 0.2 % (0.0-0.8); Hematocrit 40.2 VOL% (35.7-47.0); Hemoglobin 12.7 GM/DL (12.0-16.0); Immature Granulocytes % 0.6 %; Immature Granulocytes Absolute 0.13 #; Lymphocytes # 2.5 10*3/uL (1.4-4.0); Lymphocytes % 12.1 % (21.3-54.2); Mean Corpuscular HGB Conc 31.6 GM/DL (32-36); Mean Corpuscular Volume 95.3 FL (87-102); Mean Platelet Volume 12.3 FL (9.6-12.0); Monocytes % 8.1 % (1.7-12.7); Platelet Count 137 T/CUMM (130-400); Red Blood Count 4.22 MC/CUMM (3.8-5.5); Red Cell Distribution Width 16.4 % (9.3-17.3); White Blood Count 20.7 T/CUMM (4-12)
[2020-12-10 07:23] LABS: INR 1.2; PT Patient Result 12.7 SECS (9.8-11.9); Partial Thromboplastin Time 24.8 SECS (23.9-33.8)
[2020-12-10 07:30] LABS: Band Neutrophils 1 % (0-10); Lymphocytes 10 % (20-55); Segmented Neutrophils 83 % (50-85); Total Cells Counted 100
[2020-12-10 07:31] LABS: Alanine Aminotransferase 16 U/L (13-56); Albumin 2.7 G/DL (3.4-5.0); Alkaline Phosphatase 82 U/L (45-117); Aspartate Amino Transferase 22 U/L (0-37); Blood Urea Nitrogen 145 MG/DL (7-18); Calcium 8.4 MG/DL (8.5-10.1); Carbon Dioxide 20 MMOL/L (21-32); Estimated Glom Filtration Rate 10 ML/MIN; Glucose 186 MG/DL (74-106); Microcytosis Slight; Osmolality,Calculated 365.7 MOS/KG (273-304); Platelet Estimate Normal; Sodium 159 MMOL/L (136-145); Total Protein 7.4 G/DL (6.4-8.3)
[2020-12-10 07:37] LABS: Ferritin 1121.2 ng/ml (8-252)
[2020-12-10] MEDS ORDERED: PIPERACILLIN/TAZOBACTAM 3,375 MG in SODIUM CHLORIDE 0.9% 100 ML IV STA (07:42)
[2020-12-10 07:59] LABS: Amorphous Crystals,Urine Few /HPF (Few); Bilirubin,Urine Negative (Negative); Blood, Urine Negative (Negative); Glucose,Urine (UA) Negative (Negative); Ketones,Urine Negative (Negative); Nitrite,Urine Negative (Negative); Protein,Urine Negative; Squamous Epithelial Cell,Urine Many /HPF (0-10); Urine Appearance CLOUDY (Clear); Urine Color Amber (Yellow); Urine Specific Gravity 1.019 (1.001-1.035); Urine Urobilinogen < 2.0 EU/DL (0.2-1.0); WBC,Urine 2 /HPF (0-6)
[2020-12-10] MEDS ORDERED: NOREPINEPHRINE 4 MG/4 ML VIAL IV ONE ×3 (08:15→15:16)
[2020-12-10] MEDS: NOREPINEPHRINE 8 MG in SODIUM CHLORIDE 0.9% 242 ML IV PRN (08:20)
[2020-12-10] MEDS ORDERED: ALBUTEROL 2.5 MG/3 ML NEB RESP TX PRN (08:26)
[2020-12-10] MEDS ORDERED: ONDANSETRON 4 MG/2 ML VIAL IV PRN (08:26)
[2020-12-10] MEDS ORDERED: ACETAMINOPHEN 325 MG TABLET PO PRN (08:26)
[2020-12-10] MEDS ORDERED: SODIUM CHLORIDE 0.45% 1,000 ML IV SCH (08:30)
[2020-12-10] MEDS ORDERED: GLUCAGON 1 MG VIAL IM PRN (08:33)
[2020-12-10] MEDS ORDERED: DEXTROSE 50% 25 GM/50 ML VIAL IV PRN (08:33)
[2020-12-10] MEDS ORDERED: VANCOMYCIN INJ 1,250 MG in SODIUM CHLORIDE 0.9% 250 ML IV SCH (09:00)
[2020-12-10 09:13] LABS: ABG Base Excess -5.6 MMOL/L (-2.5-2.5); ABG HCO3 19.7 MMOL/L (20-26); ABG Oxygen Saturation 97.8 % (95-100); ABG PCO2 37.7 MM HG (35-48); ABG PH 7.336 (7.35-7.45); ABG PO2 130.1 MM HG (80-95); ABG TCO2 20.9 MMOL/L (23-27)
[2020-12-10] MEDS: SODIUM BICARB INJ 100 MEQ in STERILE WATER INJ 1,000 ML IV SCH ×2 (09:30→22:00)
[2020-12-10] MEDS ORDERED: ENOXAPARIN 30 MG/0.3 ML SYRINGE SUBCUT SCH (10:00)
[2020-12-10] MEDS: INSULIN LISPRO 100 UNIT/ML SUBCUT SCH ×4 (10:00→22:00)
[2020-12-10] MEDS: ASCORBIC ACID 500 MG TABLET PO SCH ×2 (10:00→22:03)
[2020-12-10] MEDS: CHOLECALCIFEROL 1,000 UNIT TABLET PO SCH (10:00)
[2020-12-10] MEDS: ZINC GLUCONATE 50 MG TABLET PO SCH (10:00)
[2020-12-10] MEDS ORDERED: VANCOMYCIN INJ 1,250 MG in SODIUM CHLORIDE 0.9% 250 ML IV PRN (10:05)
[2020-12-10] MEDS ORDERED: LORazepam 2 MG/1 ML VIAL ONE (10:08)
[2020-12-10] MEDS ORDERED: levETIRAcetam 500 MG/5 ML VIAL IV ONE (10:08)
[2020-12-10] MEDS: PANTOPRAZOLE 40 MG VIAL IV SCH (10:30)
[2020-12-10 11:09] LABS: Basophils # 0.1 10*3/uL (0.0-0.2); Basophils % 0.2 % (0.0-0.8); Hematocrit 36.8 VOL% (35.7-47.0); Hemoglobin 11.2 GM/DL (12.0-16.0); Immature Granulocytes % 0.7 %; Immature Granulocytes Absolute 0.17 #; Lymphocytes # 4.2 10*3/uL (1.4-4.0); Lymphocytes % 16.8 % (21.3-54.2); Mean Corpuscular HGB Conc 30.4 GM/DL (32-36); Mean Corpuscular Volume 98.7 FL (87-102); Mean Platelet Volume 12.1 FL (9.6-12.0); Monocytes % 6.4 % (1.7-12.7); Neutrophils % 75.9 % (38.7-73.9); Platelet Count 118 T/CUMM (130-400); Red Blood Count 3.73 MC/CUMM (3.8-5.5); Red Cell Distribution Width 16.4 % (9.3-17.3); White Blood Count 24.8 T/CUMM (4-12)
[2020-12-10 11:26] LABS: Band Neutrophils 1 % (0-10); Lymphocytes 22 % (20-55); Microcytosis Slight; Segmented Neutrophils 75 % (50-85); Total Cells Counted 100
[2020-12-10 11:27] LABS: Platelet Estimate Adequate
[2020-12-10 11:40] LABS: Osmolality,Calculated 364.7 MOS/KG (273-304); Potassium 3.8 MMOL/L (3.5-5.1); Thyroid Stimulating Hormone 1.27 uIU/ml (0.358-3.74)
[2020-12-10] MEDS ORDERED: VANCOMYCIN INJ 1,750 MG in SODIUM CHLORIDE 0.9% 500 ML IV ONE (12:00)
[2020-12-10] MEDS: PIPERACILLIN/TAZOBACTAM 3,375 MG in SODIUM CHLORIDE 0.9% 100 ML IV SCH ×2 (12:00→18:17)
[2020-12-10] MEDS ORDERED: VANCOMYCIN INJ 500 MG in SODIUM CHLORIDE 0.9% 100 ML IV STA (12:13)
[2020-12-10] MEDS: ALBUTEROL/IPRATROPIUM 3 ML NEB RESP TX SCH ×2 (12:23→18:47)
[2020-12-10] MEDS ORDERED: AZITHROMYCIN INJ 500 MG in SODIUM CHLORIDE 0.9% 250 ML IV ONE (13:39)
[2020-12-10] MEDS: ENOXAPARIN 60 MG/0.6 ML SYRINGE SUBCUT SCH (14:00)
[2020-12-10] MEDS: HYDROCORTISONE 100 MG VIAL IV SCH ×2 (15:00→23:34)
[2020-12-10] MEDS ORDERED: AMIODARONE 150 MG/3 ML VIAL ONE (15:20)
[2020-12-10] MEDS ORDERED: ROCURONIUM 100 MG/10 ML VIAL IV STA (15:55)
[2020-12-10] MEDS ORDERED: ETOMIDATE 20 MG/10 ML VIAL IV STA (15:55)
[2020-12-10 16:00] LABS: Calcium 6.9 MG/DL (8.5-10.1); Potassium 3.5 MMOL/L (3.5-5.1)
[2020-12-10] MEDS ORDERED: PHENYLEPHRINE DRIP 40 MG/250 ML PREMIX IV ONE (16:21)
[2020-12-10] MEDS ORDERED: ETOMIDATE 20 MG/10 ML VIAL IV ONE (16:44)
[2020-12-10] MEDS ORDERED: ROCURONIUM 100 MG/10 ML VIAL IV ONE (16:45)
[2020-12-10 17:35] LABS: ABG Base Excess -2.5 MMOL/L (-2.5-2.5); ABG HCO3 22.4 MMOL/L (20-26); ABG PH 7.535 (7.35-7.45); ABG TCO2 16.6 MMOL/L (23-27); Pt O2 Delivery Device Ventilator
[2020-12-10] MEDS: PHENYTOIN 100 MG/2 ML VIAL IV SCH (17:45)
[2020-12-10 21:06] LABS: Calcium 6.9 MG/DL (8.5-10.1); Osmolality,Calculated 358.2 MOS/KG (273-304); Potassium 3.5 MMOL/L (3.5-5.1)
[2020-12-11] MEDS: ALBUTEROL/IPRATROPIUM 3 ML NEB RESP TX SCH (01:04)
[2020-12-11] MEDS: INSULIN LISPRO 100 UNIT/ML SUBCUT SCH ×6 (02:00→23:57)
[2020-12-11 03:56] LABS: ABG Base Excess -2.3 MMOL/L (-2.5-2.5); ABG HCO3 17.2 MMOL/L (20-26); ABG Oxygen Saturation 99.1 % (95-100); ABG PO2 363.4 MM HG (80-95); ABG TCO2 17.8 MMOL/L (23-27)
[2020-12-11 04:19] LABS: ABG PH 7.599 (7.35-7.45)
[2020-12-11] MEDS ORDERED: NOREPINEPHRINE 4 MG/4 ML VIAL IV ONE (04:32)
[2020-12-11 05:06] LABS: Basophils # 0.1 10*3/uL (0.0-0.2); Basophils % 0.3 % (0.0-0.8); Hemoglobin 11.3 GM/DL (12.0-16.0); Immature Granulocytes % 0.6 %; Immature Granulocytes Absolute 0.13 #; Lymphocytes # 2.7 10*3/uL (1.4-4.0); Lymphocytes % 13.1 % (21.3-54.2); Mean Corpuscular HGB Conc 32.3 GM/DL (32-36); Mean Corpuscular Volume 92.6 FL (87-102); Monocytes % 4.8 % (1.7-12.7); Neutrophils % 81.2 % (38.7-73.9); Platelet Count 106 T/CUMM (130-400); Red Blood Count 3.78 MC/CUMM (3.8-5.5); Red Cell Distribution Width 15.6 % (9.3-17.3); White Blood Count 20.8 T/CUMM (4-12)
[2020-12-11] MEDS: PHENYTOIN 100 MG/2 ML VIAL IV SCH ×2 (05:24→18:33)
[2020-12-11 05:30] LABS: Albumin 2.1 G/DL (3.4-5.0); Bilirubin,Total 0.5 MG/DL (0.2-1.0); Calcium 6.8 MG/DL (8.5-10.1); Osmolality,Calculated 343.4 MOS/KG (273-304); Potassium 3.3 MMOL/L (3.5-5.1); Total Protein 6.2 G/DL (6.4-8.3)
[2020-12-11] MEDS: PIPERACILLIN/TAZOBACTAM 3,375 MG in SODIUM CHLORIDE 0.9% 100 ML IV SCH ×3 (05:30→22:16)
[2020-12-11 05:33] LABS: Ferritin 1102.6 ng/ml (8-252)
[2020-12-11 05:37] LABS: INR 1.3; PT Patient Result 13.4 SECS (9.8-11.9)
[2020-12-11] MEDS: HYDROCORTISONE 100 MG VIAL IV SCH ×3 (06:30→22:27)
[2020-12-11] MEDS ORDERED: MAGNESIUM SULF RIDER 4 GM in PREMIX 1 EACH IV PRN (06:33)
[2020-12-11 06:56] LABS: Band Neutrophils 3 % (0-10); Hypochromasia 1+; Lymphocytes 11 % (20-55); Microcytosis 1+; Segmented Neutrophils 80 % (50-85); Total Cells Counted 100
[2020-12-11 06:57] LABS: Ovalocytes Few; Platelet Estimate Adequate
[2020-12-11] MEDS ORDERED: HYDROCORTISONE 100 MG VIAL ONE (07:18)
[2020-12-11] MEDS: PHENYLEPHRINE DRIP 40 MG/250 ML PREMIX IV PRN (08:30)
[2020-12-11] MEDS: MIDAZOLAM 100 MG in SODIUM CHLORIDE 0.9% 80 ML IV PRN (08:48)
[2020-12-11] MEDS: PANTOPRAZOLE 40 MG VIAL IV SCH (09:15)
[2020-12-11] MEDS: ASCORBIC ACID 500 MG TABLET PO SCH ×2 (09:19→22:28)
[2020-12-11] MEDS: CHOLECALCIFEROL 1,000 UNIT TABLET PO SCH (09:20)
[2020-12-11] MEDS: ZINC GLUCONATE 50 MG TABLET PO SCH (09:20)
[2020-12-11] MEDS: AZITHROMYCIN 250 MG TABLET PO SCH (09:20)
[2020-12-11] MEDS: FAMOTIDINE 20 MG/2 ML VIAL IV SCH (13:15)
[2020-12-11] MEDS: ENOXAPARIN 60 MG/0.6 ML SYRINGE SUBCUT SCH (14:02)
[2020-12-11] MEDS: NOREPINEPHRINE 8 MG in SODIUM CHLORIDE 0.9% 242 ML IV PRN ×2 (15:25→20:25)
[2020-12-11 15:34] LABS: ABG Base Excess -1.3 MMOL/L (-2.5-2.5); ABG HCO3 23.3 MMOL/L (20-26); ABG Oxygen Saturation 99.8 % (95-100); ABG PH 7.495 (7.35-7.45); ABG TCO2 18.5 MMOL/L (23-27)
[2020-12-11] MEDS: SODIUM BICARB INJ 100 MEQ in STERILE WATER INJ 1,000 ML IV SCH (17:30)
[2020-12-11] MEDS: HEPARIN DRIP 25,000 UNITS/500 ML PREMIX IV SCH (20:20)
[2020-12-12] MEDS: NOREPINEPHRINE 8 MG in SODIUM CHLORIDE 0.9% 242 ML IV PRN ×2 (00:46→04:46)
[2020-12-12] MEDS ORDERED: dilTIAZem Drip 125 MG/125 ML PREMIX IV SCH (02:30)
[2020-12-12 02:42] LABS: Basophils % 0.1 % (0.0-0.8); Hemoglobin 10.9 GM/DL (12.0-16.0); Immature Granulocytes % 0.8 %; Immature Granulocytes Absolute 0.16 #; Lymphocytes # 1.9 10*3/uL (1.4-4.0); Lymphocytes % 8.9 % (21.3-54.2); Mean Corpuscular HGB Conc 32.1 GM/DL (32-36); Mean Corpuscular Volume 93.4 FL (87-102); Mean Platelet Volume 13.1 FL (9.6-12.0); Monocytes % 4.4 % (1.7-12.7); Neutrophils % 85.8 % (38.7-73.9); Platelet Count 117 T/CUMM (130-400); Red Blood Count 3.64 MC/CUMM (3.8-5.5); Red Cell Distribution Width 15.6 % (9.3-17.3); White Blood Count 20.7 T/CUMM (4-12)
[2020-12-12] MEDS: PIPERACILLIN/TAZOBACTAM 3,375 MG in SODIUM CHLORIDE 0.9% 100 ML IV SCH ×3 (02:45→19:00)
[2020-12-12] MEDS ORDERED: AMIODARONE 150 MG/3 ML VIAL ONE (02:47)
[2020-12-12] MEDS ORDERED: AMIODARONE 450 MG/9 ML VIAL IV ONE (02:47)
[2020-12-12] MEDS ORDERED: AMIODARONE INJ 150 MG in DEXTROSE 5% 100 ML IV ONE (02:50)
[2020-12-12] MEDS ORDERED: AMIODARONE INJ 450 MG in DEXTROSE 5% 241 ML IV SCH (03:00)
[2020-12-12 03:06] LABS: Albumin 1.9 G/DL (3.4-5.0); Bilirubin,Total 0.4 MG/DL (0.2-1.0); Calcium 6.6 MG/DL (8.5-10.1); Osmolality,Calculated 331.7 MOS/KG (273-304); Total Protein 5.6 G/DL (6.4-8.3)
[2020-12-12] MEDS ORDERED: LORazepam 2 MG/1 ML VIAL ONE (03:16)
[2020-12-12] MEDS: POTASSIUM CHLORIDE RIDER 20 MEQ in PREMIX 1 EACH IV PRN ×2 (03:20→03:55)
[2020-12-12] MEDS ORDERED: LORazepam 2 MG/1 ML VIAL IV PRN (03:25)
[2020-12-12] MEDS ORDERED: POTASSIUM CHLORIDE RIDER 100 ML IV ONE (03:27)
[2020-12-12] MEDS: INSULIN LISPRO 100 UNIT/ML SUBCUT SCH ×6 (03:52→20:23)
[2020-12-12] MEDS: SODIUM BICARB INJ 100 MEQ in STERILE WATER INJ 1,000 ML IV SCH ×2 (03:55→12:01)
[2020-12-12] MEDS: PHENYTOIN 100 MG/2 ML VIAL IV SCH ×2 (04:04→16:25)
[2020-12-12] MEDS: LORazepam 2 MG/1 ML VIAL IV PRN (04:28)
[2020-12-12] MEDS: POTASSIUM CHLORIDE RIDER 10 MEQ in PREMIX 1 EACH IV PRN (04:29)
[2020-12-12 04:48] LABS: ABG Base Excess -0.8 MMOL/L (-2.5-2.5); ABG HCO3 23.8 MMOL/L (20-26); ABG Oxygen Saturation 99.5 % (95-100); ABG PCO2 40.5 MM HG (35-48); ABG PH 7.384 (7.35-7.45); ABG TCO2 21.6 MMOL/L (23-27)
[2020-12-12] MEDS: HYDROCORTISONE 100 MG VIAL IV SCH ×4 (05:40→21:16)
[2020-12-12 08:38] LABS: Lymphocytes 5 % (20-55); Platelet Estimate Normal; Segmented Neutrophils 91 % (50-85); Total Cells Counted 100
[2020-12-12 08:40] LABS: Polychromasia Slight; Target Cells Few
[2020-12-12] MEDS ORDERED: INFLUENZA VIRUS VACCINE 0.5 ML SYRINGE IM ONE (09:00)
[2020-12-12] MEDS: AZITHROMYCIN 250 MG TABLET PO SCH (09:35)
[2020-12-12] MEDS: CHOLECALCIFEROL 1,000 UNIT TABLET PO SCH (09:35)
[2020-12-12] MEDS: ASCORBIC ACID 500 MG TABLET PO SCH ×2 (09:35→20:24)
[2020-12-12] MEDS: ZINC GLUCONATE 50 MG TABLET PO SCH (09:35)
[2020-12-12] MEDS: PHENYLEPHRINE DRIP 40 MG/250 ML PREMIX IV PRN ×3 (09:47→23:31)
[2020-12-12] MEDS ORDERED: PHENYTOIN INJ 500 MG in SODIUM CHLORIDE 0.9% 100 ML IV ONE (09:48)
[2020-12-12] MEDS ORDERED: SODIUM CHLORIDE 0.45% 1,000 ML IV ONE (10:09)
[2020-12-12] MEDS: MIDAZOLAM 100 MG in SODIUM CHLORIDE 0.9% 80 ML IV PRN ×2 (10:40→21:01)
[2020-12-12] MEDS ORDERED: VANCOMYCIN INJ 1,250 MG in SODIUM CHLORIDE 0.9% 250 ML IV ONE (11:00)
[2020-12-12] MEDS ORDERED: LACTATED RINGERS 1,000 ML IV ONE (11:05)
[2020-12-12] MEDS: AMIODARONE INJ 450 MG in DEXTROSE 5% 241 ML IV SCH (11:59)
[2020-12-12] MEDS: NOREPINEPHRINE 16 MG in SODIUM CHLORIDE 0.9% 234 ML IV PRN ×3 (12:02→22:11)
[2020-12-12] MEDS: SODIUM CHLORIDE 0.45% 1,000 ML IV SCH ×2 (12:50→21:23)
[2020-12-12] MEDS: FAMOTIDINE 20 MG/2 ML VIAL IV SCH ×2 (12:59)
[2020-12-12] MEDS ORDERED: HYDROCORTISONE 100 MG VIAL IV SCH (14:00)
[2020-12-12 17:55] LABS: Creatinine,Urine Random < 13 MG/DL
[2020-12-12] MEDS: HEPARIN DRIP 25,000 UNITS/500 ML PREMIX IV SCH ×2 (18:29→21:19)
[2020-12-12] MEDS ORDERED: HEPARIN 5,000 UNIT/1 ML VIAL IV ONE (18:55)
[2020-12-12] MEDS ORDERED: HEPARIN 5,000 UNIT/1 ML VIAL IV PRN (19:02)
[2020-12-12] MEDS: dilTIAZem INJ 125 MG in SODIUM CHLORIDE 0.9% 125 MG/100 ML BAG IV SCH (19:05)
[2020-12-12] MEDS: LACOSAMIDE 50 MG TABLET PEG SCH (20:24)
[2020-12-12] MEDS ORDERED: EPINEPHrine 1 MG/ML VIAL ONE (22:40)
[2020-12-12] MEDS ORDERED: PROTAMINE SULFATE 50 MG/5 ML VIAL IV ONE (23:11)
[2020-12-12 23:43] LABS: Basophils % 0.1 % (0.0-0.8); Hematocrit 31.6 VOL% (35.7-47.0); Hemoglobin 10.1 GM/DL (12.0-16.0); Immature Granulocytes % 1.4 %; Immature Granulocytes Absolute 0.34 #; Lymphocytes # 3.1 10*3/uL (1.4-4.0); Lymphocytes % 13.3 % (21.3-54.2); Mean Platelet Volume 13.4 FL (9.6-12.0); Monocytes % 5.1 % (1.7-12.7); NRBC # 0.06 10*3/uL; Neutrophils % 80.1 % (38.7-73.9); Platelet Count 118 T/CUMM (130-400); Red Blood Count 3.36 MC/CUMM (3.8-5.5); Red Cell Distribution Width 15.7 % (9.3-17.3); White Blood Count 23.7 T/CUMM (4-12)
[2020-12-13] MEDS: FAMOTIDINE 20 MG/2 ML VIAL IV SCH ×2 (00:28→13:16)
[2020-12-13 00:43] LABS: Alanine Aminotransferase 12 U/L (13-56); Albumin 1.7 G/DL (3.4-5.0); Alkaline Phosphatase 68 U/L (45-117); Aspartate Amino Transferase 17 U/L (0-37); Bilirubin,Total < 0.39 MG/DL (0.2-1.0); Blood Urea Nitrogen 58 MG/DL (7-18); Calcium 6.5 MG/DL (8.5-10.1); Carbon Dioxide 23 MMOL/L (21-32); Estimated Glom Filtration Rate 56 ML/MIN; Glucose 178 MG/DL (74-106); Osmolality,Calculated 313.3 MOS/KG (273-304); Sodium 148 MMOL/L (136-145); Total Protein 5.2 G/DL (6.4-8.3)
[2020-12-13] MEDS: INSULIN LISPRO 100 UNIT/ML SUBCUT SCH ×6 (00:52→19:32)
[2020-12-13] MEDS: PHENYLEPHRINE INJ 160 MG in SODIUM CHLORIDE 0.9% 234 ML IV PRN ×3 (01:23→17:20)
[2020-12-13] MEDS: PIPERACILLIN/TAZOBACTAM 3,375 MG in SODIUM CHLORIDE 0.9% 100 ML IV SCH ×3 (01:39→18:25)
[2020-12-13] MEDS: POTASSIUM CHLORIDE RIDER 20 MEQ in PREMIX 1 EACH IV PRN (01:41)
[2020-12-13 01:42] LABS: Anisocytosis Slight; Band Neutrophils 4 % (0-10); Eosinophils 1 % (0-10); Lymphocytes 12 % (20-55); Macrocytosis Slight; Microcytosis Slight; Segmented Neutrophils 83 % (50-85); Total Cells Counted 100
[2020-12-13 01:43] LABS: Hypochromasia Slight; Platelet Estimate Normal; Polychromasia Slight
[2020-12-13] MEDS ORDERED: SODIUM CHLORIDE 0.9% 1,000 ML IV ONE ×2 (02:07→03:55)
[2020-12-13 02:21] LABS: Hematocrit 27.6 VOL% (35.7-47.0); Hemoglobin 8.7 GM/DL (12.0-16.0); Platelet Count 106 T/CUMM (130-400)
[2020-12-13] MEDS: POTASSIUM CHLORIDE RIDER 10 MEQ in PREMIX 1 EACH IV PRN (02:55)
[2020-12-13 03:07] LABS: ABG HCO3 19.4 MMOL/L (20-26)
[2020-12-13] MEDS: AMIODARONE INJ 450 MG in DEXTROSE 5% 241 ML IV SCH ×3 (04:00→19:31)
[2020-12-13] MEDS: PHENYTOIN 100 MG/2 ML VIAL IV SCH ×2 (04:02→16:46)
[2020-12-13] MEDS: NOREPINEPHRINE 16 MG in SODIUM CHLORIDE 0.9% 234 ML IV PRN ×3 (04:04→19:50)
[2020-12-13 04:12] LABS: Basophils % 0.1 % (0.0-0.8); Hematocrit 24.7 VOL% (35.7-47.0); Hemoglobin 7.7 GM/DL (12.0-16.0); Immature Granulocytes % 4.7 %; Immature Granulocytes Absolute 1.02 #; Lymphocytes # 3.2 10*3/uL (1.4-4.0); Lymphocytes % 14.6 % (21.3-54.2); Mean Corpuscular HGB Conc 31.2 GM/DL (32-36); Mean Corpuscular Volume 95.7 FL (87-102); Mean Platelet Volume 13.8 FL (9.6-12.0); Monocytes % 6.1 % (1.7-12.7); NRBC # 0.13 10*3/uL; Neutrophils % 74.5 % (38.7-73.9); Platelet Count 88 T/CUMM (130-400); Red Blood Count 2.58 MC/CUMM (3.8-5.5); Red Cell Distribution Width 15.6 % (9.3-17.3); White Blood Count 21.6 T/CUMM (4-12)
[2020-12-13] MEDS: MAGNESIUM SULF RIDER 2 GM in PREMIX 1 EACH IV PRN (06:02)
[2020-12-13 06:09] LABS: Band Neutrophils 8 % (0-10); Lymphocytes 12 % (20-55); Metamyelocytes 3 %; Platelet Estimate Decreased; Segmented Neutrophils 72 % (50-85); Total Cells Counted 100
[2020-12-13 06:10] LABS: Anisocytosis 2+; Atypical Lymphocytes Few; Giant Platelets Few; Smudge Cells Few
[2020-12-13 06:23] LABS: Osmolality,Calculated 314.3 MOS/KG (273-304); Potassium 3.7 MMOL/L (3.5-5.1)
[2020-12-13 06:26] LABS: Calcium 5.8 MG/DL (8.5-10.1)
[2020-12-13] MEDS: SODIUM CHLORIDE 0.45% 1,000 ML IV SCH (06:52)
[2020-12-13 08:05] LABS: Hematocrit 32.3 VOL% (35.7-47.0); Hemoglobin 10.5 GM/DL (12.0-16.0); Platelet Count 99 T/CUMM (130-400)
[2020-12-13] MEDS ORDERED: CALCIUM GLUCONATE 2,000 MG in SODIUM CHLORIDE 0.9% 100 ML IV ONE (08:10)
[2020-12-13] MEDS: MIDAZOLAM 100 MG in SODIUM CHLORIDE 0.9% 80 ML IV PRN ×2 (09:36→22:36)
[2020-12-13] MEDS: dilTIAZem INJ 125 MG in SODIUM CHLORIDE 0.9% 125 MG/100 ML BAG IV SCH ×2 (10:02→18:07)
[2020-12-13] MEDS: ASCORBIC ACID 500 MG TABLET PO SCH ×2 (10:14→21:24)
[2020-12-13] MEDS: CHOLECALCIFEROL 1,000 UNIT TABLET PO SCH (10:14)
[2020-12-13] MEDS: ZINC GLUCONATE 50 MG TABLET PO SCH (10:14)
[2020-12-13] MEDS: AZITHROMYCIN 250 MG TABLET PO SCH (10:15)
[2020-12-13] MEDS: LACOSAMIDE 50 MG TABLET PEG SCH ×2 (10:22→20:45)
[2020-12-13 11:48] LABS: Hematocrit 37.6 VOL% (35.7-47.0); Hemoglobin 12.3 GM/DL (12.0-16.0)
[2020-12-13] MEDS: ERGOCALCIFEROL 50,000 UNIT CAPSULE PO SCH (13:16)
[2020-12-13] MEDS: SODIUM BICARB INJ 100 MEQ in STERILE WATER INJ 1,000 ML IV SCH (13:16)
[2020-12-13] MEDS ORDERED: VANCOMYCIN INJ 1,250 MG in SODIUM CHLORIDE 0.9% 250 ML IV ONE (16:00)
[2020-12-13] MEDS ORDERED: LORazepam 2 MG/1 ML VIAL IV PRN ×3 (22:05→23:20)
[2020-12-13] MEDS: LORazepam 2 MG/1 ML VIAL IV PRN ×2 (22:08→22:09)
[2020-12-13 23:25] LABS: Hematocrit 31.9 VOL% (35.7-47.0); Hemoglobin 10.6 GM/DL (12.0-16.0)
[2020-12-14] MEDS: LORazepam 2 MG/1 ML VIAL IV PRN ×8 (00:20→20:12)
[2020-12-14] MEDS: INSULIN LISPRO 100 UNIT/ML SUBCUT SCH ×6 (00:33→20:57)
[2020-12-14] MEDS: FAMOTIDINE 20 MG/2 ML VIAL IV SCH ×2 (00:51→14:00)
[2020-12-14] MEDS: SODIUM BICARB INJ 100 MEQ in STERILE WATER INJ 1,000 ML IV SCH ×3 (00:54→13:00)
[2020-12-14] MEDS: PIPERACILLIN/TAZOBACTAM 3,375 MG in SODIUM CHLORIDE 0.9% 100 ML IV SCH ×3 (02:14→18:20)
[2020-12-14] MEDS: NOREPINEPHRINE 16 MG in SODIUM CHLORIDE 0.9% 234 ML IV PRN ×3 (02:30→18:50)
[2020-12-14] MEDS: PHENYLEPHRINE INJ 160 MG in SODIUM CHLORIDE 0.9% 234 ML IV PRN ×2 (03:12→18:00)
[2020-12-14 04:55] LABS: ABG Base Excess -4.3 MMOL/L (-2.5-2.5); ABG HCO3 17.8 MMOL/L (20-26); ABG Oxygen Saturation 98.8 % (95-100); ABG PCO2 23.9 MM HG (35-48); ABG PH 7.489 (7.35-7.45); ABG PO2 385.3 MM HG (80-95); ABG TCO2 18.5 MMOL/L (23-27)
[2020-12-14 05:21] LABS: PT Patient Result 10.8 SECS (9.8-11.9); Partial Thromboplastin Time 30.1 SECS (23.9-33.8)
[2020-12-14 05:24] LABS: Albumin 1.4 G/DL (3.4-5.0); Bilirubin,Total 0.4 MG/DL (0.2-1.0); Calcium 6.6 MG/DL (8.5-10.1); Osmolality,Calculated 305.6 MOS/KG (273-304); Potassium 3.1 MMOL/L (3.5-5.1); Total Protein 4.4 G/DL (6.4-8.3)
[2020-12-14 05:29] LABS: Basophils # 0.1 10*3/uL (0.0-0.2); Basophils % 0.3 % (0.0-0.8); Eosinophils # 0.2 10*3/uL (0.0-0.87); Eosinophils % 0.6 % (0.00-10.9); Hematocrit 30.3 VOL% (35.7-47.0); Hemoglobin 9.9 GM/DL (12.0-16.0); Immature Granulocytes % 3.7 %; Immature Granulocytes Absolute 1.07 #; Lymphocytes % 27.4 % (21.3-54.2); Mean Corpuscular HGB Conc 32.7 GM/DL (32-36); Mean Corpuscular Volume 89.6 FL (87-102); Mean Platelet Volume 13.1 FL (9.6-12.0); Monocytes % 5.5 % (1.7-12.7); NRBC # 0.58 10*3/uL; Neutrophils % 62.5 % (38.7-73.9); Platelet Count 90 T/CUMM (130-400); Red Blood Count 3.38 MC/CUMM (3.8-5.5); Red Cell Distribution Width 14.9 % (9.3-17.3); White Blood Count 29.3 T/CUMM (4-12)
[2020-12-14] MEDS: PHENYTOIN 100 MG/2 ML VIAL IV SCH ×2 (05:34→18:30)
[2020-12-14 05:50] LABS: Band Neutrophils 2 % (0-10); Lymphocytes 19 % (20-55); Nucleated Red Blood Cells 1 (0-5); Segmented Neutrophils 73 % (50-85); Total Cells Counted 100
[2020-12-14 05:51] LABS: Hypochromasia 1+; Microcytosis Slight; Polychromasia Slight; Smudge Cells Few
[2020-12-14 05:52] LABS: Atypical Lymphocytes Few; Ovalocytes Slight; Platelet Estimate Decreased
[2020-12-14] MEDS: POTASSIUM CHLORIDE RIDER 20 MEQ in PREMIX 1 EACH IV PRN ×3 (07:02→22:22)
[2020-12-14] MEDS: LACOSAMIDE 50 MG TABLET PEG SCH ×2 (09:21→20:11)
[2020-12-14] MEDS: AZITHROMYCIN 250 MG TABLET PO SCH (09:21)
[2020-12-14] MEDS: ZINC GLUCONATE 50 MG TABLET PO SCH (09:21)
[2020-12-14] MEDS: ASCORBIC ACID 500 MG TABLET PO SCH ×2 (09:21→20:11)
[2020-12-14] MEDS: MIDAZOLAM 100 MG in SODIUM CHLORIDE 0.9% 80 ML IV PRN (09:45)
[2020-12-14] MEDS: AMIODARONE INJ 450 MG in DEXTROSE 5% 241 ML IV SCH ×2 (10:00→12:50)
[2020-12-14] MEDS: dilTIAZem INJ 125 MG in SODIUM CHLORIDE 0.9% 125 MG/100 ML BAG IV SCH (18:30)
[2020-12-15] MEDS: SODIUM BICARB INJ 100 MEQ in STERILE WATER INJ 1,000 ML IV SCH ×4 (00:07→21:13)
[2020-12-15] MEDS: INSULIN LISPRO 100 UNIT/ML SUBCUT SCH ×7 (00:08→23:41)
[2020-12-15] MEDS: AMIODARONE INJ 450 MG in DEXTROSE 5% 241 ML IV SCH ×3 (00:08→15:01)
[2020-12-15] MEDS: FAMOTIDINE 20 MG/2 ML VIAL IV SCH ×2 (00:46→12:34)
[2020-12-15] MEDS: POTASSIUM CHLORIDE RIDER 10 MEQ in PREMIX 1 EACH IV PRN (00:48)
[2020-12-15] MEDS: PIPERACILLIN/TAZOBACTAM 3,375 MG in SODIUM CHLORIDE 0.9% 100 ML IV SCH (01:37)
[2020-12-15] MEDS: NOREPINEPHRINE 16 MG in SODIUM CHLORIDE 0.9% 234 ML IV PRN ×3 (01:50→16:56)
[2020-12-15] MEDS: LORazepam 2 MG/1 ML VIAL IV PRN (03:45)
[2020-12-15 03:47] LABS: ABG Base Excess -0.9 MMOL/L (-2.5-2.5); ABG HCO3 23.7 MMOL/L (20-26); ABG Oxygen Saturation 99.1 % (95-100); ABG PCO2 24.7 MM HG (35-48); ABG PH 7.533 (7.35-7.45)
[2020-12-15 04:00] LABS: Basophils # 0.1 10*3/uL (0.0-0.2); Basophils % 0.2 % (0.0-0.8); Eosinophils # 0.2 10*3/uL (0.0-0.87); Eosinophils % 0.6 % (0.00-10.9); Hematocrit 24.8 VOL% (35.7-47.0); Hemoglobin 8.4 GM/DL (12.0-16.0); Immature Granulocytes % 3.9 %; Immature Granulocytes Absolute 1.16 #; Lymphocytes # 3.4 10*3/uL (1.4-4.0); Lymphocytes % 11.3 % (21.3-54.2); Mean Corpuscular HGB Conc 33.9 GM/DL (32-36); Mean Corpuscular Volume 88.3 FL (87-102); Mean Platelet Volume 12.8 FL (9.6-12.0); Monocytes % 4.7 % (1.7-12.7); NRBC # 0.38 10*3/uL; Neutrophils % 79.3 % (38.7-73.9); Platelet Count 83 T/CUMM (130-400); Red Blood Count 2.81 MC/CUMM (3.8-5.5); Red Cell Distribution Width 14.7 % (9.3-17.3)
[2020-12-15 04:08] LABS: Calcium 7.1 MG/DL (8.5-10.1); Osmolality,Calculated 299.7 MOS/KG (273-304); Potassium 3.8 MMOL/L (3.5-5.1)
[2020-12-15 04:21] LABS: Hypochromasia 2+; Lymphocytes 11 % (20-55); Microcytosis 1+; Nucleated Red Blood Cells 1 (0-5); Platelet Estimate Decreased; Segmented Neutrophils 85 % (50-85); Total Cells Counted 100
[2020-12-15] MEDS: PHENYTOIN 100 MG/2 ML VIAL IV SCH ×2 (05:50→16:50)
[2020-12-15] MEDS ORDERED: MAGNESIUM SULF RIDER 2 GM in PREMIX 1 EACH IV ONE (08:07)
[2020-12-15] MEDS: ASCORBIC ACID 500 MG TABLET PO SCH ×2 (08:19→20:42)
[2020-12-15] MEDS: ZINC GLUCONATE 50 MG TABLET PO SCH (08:20)
[2020-12-15] MEDS: LACOSAMIDE 50 MG TABLET PEG SCH ×2 (08:23→20:42)
[2020-12-15] MEDS: CEFEPIME 1,000 MG in SODIUM CHLORIDE 0.9% 100 ML IV SCH ×2 (12:17→18:38)
[2020-12-15] MEDS: POTASSIUM CHLORIDE RIDER 20 MEQ in PREMIX 1 EACH IV PRN (16:25)
[2020-12-15] MEDS: FLUCONAZOLE INJ 100 MG in IV BAG 1 EACH IV SCH (17:35)
[2020-12-15] MEDS: AMIODARONE 200 MG TABLET PO SCH (20:55)
[2020-12-16] MEDS: FAMOTIDINE 20 MG/2 ML VIAL IV SCH ×2 (00:23→12:19)
[2020-12-16] MEDS: CEFEPIME 1,000 MG in SODIUM CHLORIDE 0.9% 100 ML IV SCH ×4 (00:26→18:07)
[2020-12-16] MEDS: SODIUM BICARB INJ 100 MEQ in STERILE WATER INJ 1,000 ML IV SCH ×2 (01:04→06:17)
[2020-12-16] MEDS: INSULIN LISPRO 100 UNIT/ML SUBCUT SCH ×5 (04:14→20:46)
[2020-12-16 04:43] LABS: ABG Base Excess 0.8 MMOL/L (-2.5-2.5); ABG HCO3 25.2 MMOL/L (20-26); ABG Oxygen Saturation 99.3 % (95-100); ABG PH 7.512 (7.35-7.45); ABG TCO2 21.5 MMOL/L (23-27)
[2020-12-16 04:50] LABS: Basophils % 0.1 % (0.0-0.8); Eosinophils # 0.3 10*3/uL (0.0-0.87); Eosinophils % 1.5 % (0.00-10.9); Hematocrit 21.7 VOL% (35.7-47.0); Hemoglobin 7.2 GM/DL (12.0-16.0); Immature Granulocytes % 5.8 %; Immature Granulocytes Absolute 1.12 #; Lymphocytes # 3.2 10*3/uL (1.4-4.0); Lymphocytes % 16.6 % (21.3-54.2); Mean Corpuscular HGB Conc 33.2 GM/DL (32-36); Mean Corpuscular Volume 89.3 FL (87-102); Mean Platelet Volume 12.9 FL (9.6-12.0); Monocytes % 3.6 % (1.7-12.7); Neutrophils % 72.4 % (38.7-73.9); Red Blood Count 2.43 MC/CUMM (3.8-5.5); Red Cell Distribution Width 14.9 % (9.3-17.3)
[2020-12-16 04:52] LABS: White Blood Count 19.4 T/CUMM (4-12)
[2020-12-16] MEDS: AMIODARONE INJ 450 MG in DEXTROSE 5% 241 ML IV SCH ×2 (04:52→20:46)
[2020-12-16 04:53] LABS: Platelet Count 86 T/CUMM (130-400)
[2020-12-16 05:08] LABS: Calcium 7.1 MG/DL (8.5-10.1); Osmolality,Calculated 292.7 MOS/KG (273-304); Potassium 3.5 MMOL/L (3.5-5.1)
[2020-12-16 05:17] LABS: Hypochromasia 1+; Lymphocytes 11 % (20-55); Microcytosis 1+; Nucleated Red Blood Cells 2 (0-5); Platelet Estimate Decreased; Segmented Neutrophils 87 % (50-85); Total Cells Counted 100
[2020-12-16] MEDS: PHENYTOIN 100 MG/2 ML VIAL IV SCH ×2 (05:23→17:03)
[2020-12-16] MEDS: POTASSIUM CHLORIDE RIDER 20 MEQ in PREMIX 1 EACH IV PRN (05:46)
[2020-12-16] MEDS: LACOSAMIDE 50 MG TABLET PEG SCH ×2 (09:40→21:58)
[2020-12-16] MEDS: ASCORBIC ACID 500 MG TABLET PO SCH ×2 (09:40→20:03)
[2020-12-16] MEDS: ZINC GLUCONATE 50 MG TABLET PO SCH (09:40)
[2020-12-16] MEDS: AMIODARONE 200 MG TABLET PO SCH ×2 (09:40→20:03)
[2020-12-16] MEDS: POTASSIUM CHLORIDE RIDER 10 MEQ in PREMIX 1 EACH IV PRN (10:30)
[2020-12-16] MEDS: FLUCONAZOLE INJ 100 MG in IV BAG 1 EACH IV SCH (15:51)
[2020-12-17] MEDS: INSULIN LISPRO 100 UNIT/ML SUBCUT SCH ×7 (00:36→23:35)
[2020-12-17] MEDS: PHENYTOIN 100 MG/2 ML VIAL IV SCH ×3 (00:36→17:35)
[2020-12-17] MEDS: CEFEPIME 1,000 MG in SODIUM CHLORIDE 0.9% 100 ML IV SCH ×4 (00:36→18:35)
[2020-12-17] MEDS: FAMOTIDINE 20 MG/2 ML VIAL IV SCH ×2 (00:37→13:27)
[2020-12-17 04:46] LABS: Basophils % 0.1 % (0.0-0.8); Eosinophils # 0.2 10*3/uL (0.0-0.87); Eosinophils % 1.2 % (0.00-10.9); Immature Granulocytes % 6.5 %; Immature Granulocytes Absolute 0.98 #; Mean Corpuscular HGB Conc 31.8 GM/DL (32-36); Mean Corpuscular Volume 92.1 FL (87-102); Mean Platelet Volume 12.3 FL (9.6-12.0); Monocytes % 4.2 % (1.7-12.7); NRBC # 0.07 10*3/uL; Platelet Count 120 T/CUMM (130-400); Red Blood Count 2.39 MC/CUMM (3.8-5.5); Red Cell Distribution Width 15.9 % (9.3-17.3); White Blood Count 15.1 T/CUMM (4-12)
[2020-12-17 04:48] LABS: ABG Base Excess 0.6 MMOL/L (-2.5-2.5); ABG Oxygen Saturation 99.8 % (95-100); ABG PCO2 26.7 MM HG (35-48); ABG PH 7.539 (7.35-7.45); ABG TCO2 21.5 MMOL/L (23-27)
[2020-12-17 05:37] LABS: Albumin 1.1 G/DL (3.4-5.0); Bilirubin,Total 0.4 MG/DL (0.2-1.0); Calcium 7.4 MG/DL (8.5-10.1); Hypochromasia 1+; Lymphocytes 17 % (20-55); Metamyelocytes 1 %; Myelocytes 1 %; Nucleated Red Blood Cells 1 (0-5); Osmolality,Calculated 289.8 MOS/KG (273-304); Potassium 3.7 MMOL/L (3.5-5.1); Segmented Neutrophils 75 % (50-85); Total Cells Counted 100; Total Protein 4.3 G/DL (6.4-8.3)
[2020-12-17 05:38] LABS: Microcytosis 1+; Ovalocytes Slight; Platelet Estimate Adequate
[2020-12-17] MEDS: NOREPINEPHRINE 16 MG in SODIUM CHLORIDE 0.9% 234 ML IV PRN (06:15)
[2020-12-17] MEDS: MIDAZOLAM 100 MG in SODIUM CHLORIDE 0.9% 80 ML IV PRN (06:30)
[2020-12-17] MEDS: LACOSAMIDE 50 MG TABLET PEG SCH ×2 (08:53→20:16)
[2020-12-17] MEDS: ASCORBIC ACID 500 MG TABLET PO SCH ×2 (08:53→20:15)
[2020-12-17] MEDS: AMIODARONE 200 MG TABLET PO SCH ×2 (08:53→20:16)
[2020-12-17] MEDS: ZINC GLUCONATE 50 MG TABLET PO SCH (08:53)
[2020-12-17] MEDS: AMIODARONE INJ 450 MG in DEXTROSE 5% 241 ML IV SCH (10:20)
[2020-12-17] MEDS ORDERED: MAGNESIUM SULF RIDER 1 GM in PREMIX 1 EACH IV ONE (10:40)
[2020-12-17] MEDS ORDERED: SODIUM CHLORIDE 0.9% 1,000 ML IV PRN (17:30)
[2020-12-17] MEDS: FLUCONAZOLE INJ 100 MG in IV BAG 1 EACH IV SCH (17:35)
[2020-12-18] MEDS: CEFEPIME 1,000 MG in SODIUM CHLORIDE 0.9% 100 ML IV SCH ×4 (00:30→18:09)
[2020-12-18] MEDS: PHENYTOIN 100 MG/2 ML VIAL IV SCH ×3 (00:35→16:23)
[2020-12-18] MEDS: FAMOTIDINE 20 MG/2 ML VIAL IV SCH ×2 (00:35→12:21)
[2020-12-18] MEDS: AMIODARONE INJ 450 MG in DEXTROSE 5% 241 ML IV SCH (03:35)
[2020-12-18 05:13] LABS: ABG Base Excess 0.1 MMOL/L (-2.5-2.5); ABG HCO3 24.3 MMOL/L (20-26); ABG Oxygen Saturation 83.9 % (95-100); ABG PCO2 31.5 MM HG (35-48); ABG PH 7.474 (7.35-7.45); ABG PO2 46.9 MM HG (80-95); ABG TCO2 21.2 MMOL/L (23-27); Basophils # 0.1 10*3/uL (0.0-0.2); Basophils % 0.4 % (0.0-0.8); Eosinophils # 0.2 10*3/uL (0.0-0.87); Eosinophils % 1.1 % (0.00-10.9); Hematocrit 33.7 VOL% (35.7-47.0); Hemoglobin 10.5 GM/DL (12.0-16.0); Immature Granulocytes % 4.7 %; Immature Granulocytes Absolute 0.75 #; Lymphocytes % 18.7 % (21.3-54.2); Mean Corpuscular HGB Conc 31.2 GM/DL (32-36); Mean Corpuscular Volume 94.7 FL (87-102); Mean Platelet Volume 11.1 FL (9.6-12.0); Monocytes % 4.1 % (1.7-12.7); NRBC # 0.02 10*3/uL; Platelet Count 153 T/CUMM (130-400); Red Blood Count 3.56 MC/CUMM (3.8-5.5); Red Cell Distribution Width 15.8 % (9.3-17.3); White Blood Count 16.1 T/CUMM (4-12)
[2020-12-18 05:48] LABS: Alanine Aminotransferase 32 U/L (13-56); Albumin 1.2 G/DL (3.4-5.0); Alkaline Phosphatase 105 U/L (45-117); Aspartate Amino Transferase 24 U/L (0-37); Bilirubin,Total < 0.39 MG/DL (0.2-1.0); Blood Urea Nitrogen 23 MG/DL (7-18); Calcium 7.5 MG/DL (8.5-10.1); Carbon Dioxide 21 MMOL/L (21-32); Estimated Glom Filtration Rate 155 ML/MIN; Glucose 119 MG/DL (74-106); Sodium 143 MMOL/L (136-145); Total Protein 4.6 G/DL (6.4-8.3)
[2020-12-18 05:49] LABS: Band Neutrophils 1 % (0-10); Eosinophils 2 % (0-10); Hypochromasia 1+; Lymphocytes 12 % (20-55); Microcytosis 1+; Nucleated Red Blood Cells 1 (0-5); Platelet Estimate Adequate; Segmented Neutrophils 82 % (50-85); Total Cells Counted 100
[2020-12-18] MEDS: INSULIN LISPRO 100 UNIT/ML SUBCUT SCH ×5 (06:10→19:42)
[2020-12-18] MEDS: ASCORBIC ACID 500 MG TABLET PO SCH ×2 (08:02→20:20)
[2020-12-18] MEDS: AMIODARONE 200 MG TABLET PO SCH ×2 (08:02→20:20)
[2020-12-18] MEDS: ZINC GLUCONATE 50 MG TABLET PO SCH (08:02)
[2020-12-18] MEDS: LACOSAMIDE 50 MG TABLET PEG SCH ×2 (08:15→20:21)
[2020-12-18 08:38] LABS: ABG Base Excess -0.4 MMOL/L (-2.5-2.5); ABG HCO3 24.1 MMOL/L (20-26); ABG Oxygen Saturation 99.7 % (95-100); ABG PCO2 31.8 MM HG (35-48); ABG PH 7.463 (7.35-7.45); ABG TCO2 20.7 MMOL/L (23-27)
[2020-12-18] MEDS: FONDAPARINUX 2.5 MG/0.5 ML SYRINGE SUBCUT SCH (14:48)
[2020-12-18] MEDS: FLUCONAZOLE INJ 100 MG in IV BAG 1 EACH IV SCH (16:00)
[2020-12-18 18:12] LABS: CDT Result Negative (Negative); CDT Specimen Source STOOL
[2020-12-19] MEDS: PHENYTOIN 100 MG/2 ML VIAL IV SCH ×3 (00:20→16:56)
[2020-12-19] MEDS: CEFEPIME 1,000 MG in SODIUM CHLORIDE 0.9% 100 ML IV SCH ×4 (00:25→18:31)
[2020-12-19] MEDS: FAMOTIDINE 20 MG/2 ML VIAL IV SCH ×2 (00:33→12:47)
[2020-12-19] MEDS: INSULIN LISPRO 100 UNIT/ML SUBCUT SCH ×6 (01:01→20:18)
[2020-12-19 04:23] LABS: Basophils # 0.1 10*3/uL (0.0-0.2); Basophils % 0.3 % (0.0-0.8); Eosinophils # 0.2 10*3/uL (0.0-0.87); Eosinophils % 1.1 % (0.00-10.9); Hematocrit 32.6 VOL% (35.7-47.0); Hemoglobin 10.1 GM/DL (12.0-16.0); Immature Granulocytes Absolute 0.87 #; Lymphocytes # 2.8 10*3/uL (1.4-4.0); Lymphocytes % 16.2 % (21.3-54.2); Mean Corpuscular Volume 94.2 FL (87-102); Mean Platelet Volume 10.3 FL (9.6-12.0); Monocytes % 5.6 % (1.7-12.7); NRBC # 0.02 10*3/uL; Neutrophils % 71.8 % (38.7-73.9); Platelet Count 182 T/CUMM (130-400); Red Blood Count 3.46 MC/CUMM (3.8-5.5); Red Cell Distribution Width 15.9 % (9.3-17.3); White Blood Count 17.4 T/CUMM (4-12)
[2020-12-19 04:49] LABS: Anisocytosis 1+; Band Neutrophils 1 % (0-10); Hypochromasia 1+; Lymphocytes 13 % (20-55); Microcytosis 1+; Segmented Neutrophils 83 % (50-85); Total Cells Counted 100
[2020-12-19 04:50] LABS: Platelet Estimate Adequate
[2020-12-19 04:53] LABS: Albumin 1.2 G/DL (3.4-5.0); Bilirubin,Total 0.7 MG/DL (0.2-1.0); Calcium 7.6 MG/DL (8.5-10.1); Osmolality,Calculated 285.3 MOS/KG (273-304); Potassium 4.2 MMOL/L (3.5-5.1); Total Protein 4.7 G/DL (6.4-8.3)
[2020-12-19] MEDS: MAGNESIUM SULF RIDER 2 GM in PREMIX 1 EACH IV PRN (06:21)
[2020-12-19 07:18] LABS: ABG Base Excess 0.5 MMOL/L (-2.5-2.5); ABG HCO3 24.9 MMOL/L (20-26); ABG Oxygen Saturation 98.2 % (95-100); ABG PCO2 32.9 MM HG (35-48); ABG PH 7.466 (7.35-7.45); ABG PO2 99.2 MM HG (80-95); ABG TCO2 21.5 MMOL/L (23-27)
[2020-12-19] MEDS: ASCORBIC ACID 500 MG TABLET PO SCH ×2 (10:02→21:32)
[2020-12-19] MEDS: LACOSAMIDE 50 MG TABLET PEG SCH ×2 (10:02→21:32)
[2020-12-19] MEDS: ZINC GLUCONATE 50 MG TABLET PO SCH (10:02)
[2020-12-19] MEDS: AMIODARONE 200 MG TABLET PO SCH ×2 (10:02→21:32)
[2020-12-19] MEDS: FONDAPARINUX 2.5 MG/0.5 ML SYRINGE SUBCUT SCH (14:09)
[2020-12-19] MEDS: FLUCONAZOLE INJ 100 MG in IV BAG 1 EACH IV SCH (16:55)
[2020-12-20] MEDS: INSULIN LISPRO 100 UNIT/ML SUBCUT SCH ×6 (00:37→21:17)
[2020-12-20] MEDS: PHENYTOIN 100 MG/2 ML VIAL IV SCH ×4 (00:45→23:46)
[2020-12-20] MEDS: FAMOTIDINE 20 MG/2 ML VIAL IV SCH ×2 (01:00→12:40)
[2020-12-20] MEDS: CEFEPIME 1,000 MG in SODIUM CHLORIDE 0.9% 100 ML IV SCH ×5 (01:00→23:45)
[2020-12-20 04:34] LABS: Basophils % 0.2 % (0.0-0.8); Eosinophils # 0.2 10*3/uL (0.0-0.87); Eosinophils % 1.1 % (0.00-10.9); Hematocrit 29.7 VOL% (35.7-47.0); Hemoglobin 9.2 GM/DL (12.0-16.0); Immature Granulocytes % 3.7 %; Immature Granulocytes Absolute 0.58 #; Lymphocytes # 2.7 10*3/uL (1.4-4.0); Lymphocytes % 17.2 % (21.3-54.2); Mean Corpuscular Volume 94.9 FL (87-102); Mean Platelet Volume 9.8 FL (9.6-12.0); Monocytes % 6.4 % (1.7-12.7); Neutrophils % 71.4 % (38.7-73.9); Platelet Count 179 T/CUMM (130-400); Red Blood Count 3.13 MC/CUMM (3.8-5.5); Red Cell Distribution Width 16.2 % (9.3-17.3); White Blood Count 15.8 T/CUMM (4-12)
[2020-12-20 05:17] LABS: Bilirubin,Total 0.8 MG/DL (0.2-1.0); Calcium 7.5 MG/DL (8.5-10.1); Osmolality,Calculated 278.7 MOS/KG (273-304); Potassium 4.2 MMOL/L (3.5-5.1); Total Protein 4.6 G/DL (6.4-8.3)
[2020-12-20 05:19] LABS: Hypochromasia Slight; Lymphocytes 13 % (20-55); Platelet Estimate Normal; Segmented Neutrophils 84 % (50-85); Total Cells Counted 100
[2020-12-20] MEDS: ASCORBIC ACID 500 MG TABLET PO SCH ×2 (08:31→21:18)
[2020-12-20] MEDS: ZINC GLUCONATE 50 MG TABLET PO SCH (08:32)
[2020-12-20] MEDS: AMIODARONE 200 MG TABLET PO SCH ×2 (08:32→21:18)
[2020-12-20] MEDS: LACOSAMIDE 50 MG TABLET PEG SCH ×2 (08:32→21:18)
[2020-12-20] MEDS: ERGOCALCIFEROL 50,000 UNIT CAPSULE PO SCH (12:40)
[2020-12-20] MEDS: FONDAPARINUX 2.5 MG/0.5 ML SYRINGE SUBCUT SCH (14:15)
[2020-12-20] MEDS: FLUCONAZOLE INJ 100 MG in IV BAG 1 EACH IV SCH (16:15)
[2020-12-21] MEDS: FAMOTIDINE 20 MG/2 ML VIAL IV SCH ×2 (01:18→13:38)
[2020-12-21] MEDS: INSULIN LISPRO 100 UNIT/ML SUBCUT SCH ×6 (02:46→22:10)
[2020-12-21 04:24] LABS: ABG Base Excess 1.4 MMOL/L (-2.5-2.5); ABG HCO3 24.6 MMOL/L (20-26); ABG Oxygen Saturation 97.4 % (95-100); ABG PCO2 33.8 MM HG (35-48); ABG PH 7.479 (7.35-7.45); ABG PO2 94.7 MM HG (80-95); ABG TCO2 25.6 MMOL/L (23-27); Allen Test Positive; Pt O2 Delivery Device Ventilator
[2020-12-21] MEDS: CEFEPIME 1,000 MG in SODIUM CHLORIDE 0.9% 100 ML IV SCH (06:01)
[2020-12-21 06:18] LABS: Albumin 1.1 G/DL (3.4-5.0); Bilirubin,Total 0.4 MG/DL (0.2-1.0); Calcium 7.6 MG/DL (8.5-10.1); Osmolality,Calculated 276.8 MOS/KG (273-304); Potassium 4.1 MMOL/L (3.5-5.1); Total Protein 4.9 G/DL (6.4-8.3)
[2020-12-21] MEDS: ASCORBIC ACID 500 MG TABLET PO SCH ×2 (08:13→21:56)
[2020-12-21] MEDS: AMIODARONE 200 MG TABLET PO SCH ×2 (08:13→21:56)
[2020-12-21] MEDS: PHENYTOIN 100 MG/2 ML VIAL IV SCH ×2 (08:13→16:39)
[2020-12-21] MEDS: ZINC GLUCONATE 50 MG TABLET PO SCH (08:13)
[2020-12-21] MEDS: LACOSAMIDE 50 MG TABLET PEG SCH ×2 (08:16→21:56)
[2020-12-21] MEDS: FONDAPARINUX 2.5 MG/0.5 ML SYRINGE SUBCUT SCH (14:45)
[2020-12-21] MEDS: FLUCONAZOLE INJ 100 MG in IV BAG 1 EACH IV SCH (16:39)
[2020-12-22] MEDS: INSULIN LISPRO 100 UNIT/ML SUBCUT SCH ×6 (00:34→19:53)
[2020-12-22] MEDS: PHENYTOIN 100 MG/2 ML VIAL IV SCH ×3 (00:40→16:38)
[2020-12-22] MEDS: FAMOTIDINE 20 MG/2 ML VIAL IV SCH ×2 (00:41→13:48)
[2020-12-22 04:53] LABS: Allen Test Positive; Pt O2 Delivery Device Ventilator
[2020-12-22 04:55] LABS: ABG Base Excess 2.1 MMOL/L (-2.5-2.5); ABG HCO3 26.3 MMOL/L (20-26); ABG Oxygen Saturation 98.8 % (95-100); ABG PCO2 35.8 MM HG (35-48); ABG PH 7.465 (7.35-7.45); ABG TCO2 23.7 MMOL/L (23-27)
[2020-12-22 05:00] LABS: Basophils % 0.2 % (0.0-0.8); Eosinophils # 0.2 10*3/uL (0.0-0.87); Eosinophils % 1.4 % (0.00-10.9); Hematocrit 27.9 VOL% (35.7-47.0); Hemoglobin 8.5 GM/DL (12.0-16.0); Immature Granulocytes % 2.5 %; Immature Granulocytes Absolute 0.31 #; Lymphocytes # 2.3 10*3/uL (1.4-4.0); Lymphocytes % 18.4 % (21.3-54.2); Mean Corpuscular HGB Conc 30.5 GM/DL (32-36); Mean Corpuscular Volume 96.5 FL (87-102); Mean Platelet Volume 9.3 FL (9.6-12.0); Monocytes % 8.4 % (1.7-12.7); Neutrophils % 69.1 % (38.7-73.9); Platelet Count 214 T/CUMM (130-400); Red Blood Count 2.89 MC/CUMM (3.8-5.5); Red Cell Distribution Width 16.2 % (9.3-17.3); White Blood Count 12.4 T/CUMM (4-12)
[2020-12-22 05:20] LABS: Alanine Aminotransferase 18 U/L (13-56); Albumin 1.1 G/DL (3.4-5.0); Alkaline Phosphatase 96 U/L (45-117); Aspartate Amino Transferase 17 U/L (0-37); Bilirubin,Total < 0.39 MG/DL (0.2-1.0); Blood Urea Nitrogen 24 MG/DL (7-18); Calcium 7.8 MG/DL (8.5-10.1); Carbon Dioxide 26 MMOL/L (21-32); Estimated Glom Filtration Rate 157 ML/MIN; Glucose 110 MG/DL (74-106); Potassium 4.2 MMOL/L (3.5-5.1); Sodium 136 MMOL/L (136-145); Total Protein 4.9 G/DL (6.4-8.3)
[2020-12-22] MEDS: LACOSAMIDE 50 MG TABLET PEG SCH ×2 (08:02→22:21)
[2020-12-22] MEDS: ASCORBIC ACID 500 MG TABLET PO SCH ×2 (08:02→22:21)
[2020-12-22] MEDS: AMIODARONE 200 MG TABLET PO SCH ×2 (08:02→22:21)
[2020-12-22] MEDS: ZINC GLUCONATE 50 MG TABLET PO SCH (08:02)
[2020-12-22] MEDS: FONDAPARINUX 2.5 MG/0.5 ML SYRINGE SUBCUT SCH (13:48)
[2020-12-22] MEDS ORDERED: MORPHINE 4 MG/1 ML VIAL ONE (16:25)
[2020-12-22] MEDS: MORPHINE 4 MG/1 ML VIAL IV PRN ×2 (16:28→19:47)
[2020-12-23] MEDS: INSULIN LISPRO 100 UNIT/ML SUBCUT SCH ×2 (01:38→04:02)
[2020-12-23] MEDS: FAMOTIDINE 20 MG/2 ML VIAL IV SCH (01:39)
[2020-12-23] MEDS: PHENYTOIN 100 MG/2 ML VIAL IV SCH ×2 (01:39→08:13)
[2020-12-23] MEDS: MORPHINE 4 MG/1 ML VIAL IV PRN (04:01)
[2020-12-23 05:53] LABS: Basophils # 0.1 10*3/uL (0.0-0.2); Basophils % 0.4 % (0.0-0.8); Eosinophils # 0.2 10*3/uL (0.0-0.87); Eosinophils % 1.4 % (0.00-10.9); Hematocrit 28.1 VOL% (35.7-47.0); Hemoglobin 8.7 GM/DL (12.0-16.0); Immature Granulocytes % 1.4 %; Immature Granulocytes Absolute 0.19 #; Lymphocytes # 2.7 10*3/uL (1.4-4.0); Lymphocytes % 19.8 % (21.3-54.2); Mean Corpuscular Volume 94.9 FL (87-102); Mean Platelet Volume 9.6 FL (9.6-12.0); Monocytes % 7.9 % (1.7-12.7); Neutrophils % 69.1 % (38.7-73.9); Platelet Count 274 T/CUMM (130-400); Red Blood Count 2.96 MC/CUMM (3.8-5.5); Red Cell Distribution Width 16.1 % (9.3-17.3); White Blood Count 13.7 T/CUMM (4-12)
[2020-12-23 06:13] LABS: Hypochromasia 1+; Microcytosis 1+; Platelet Estimate Adequate
[2020-12-23 06:22] LABS: Calcium 8.1 MG/DL (8.5-10.1); Osmolality,Calculated 275.8 MOS/KG (273-304); Potassium 4.5 MMOL/L (3.5-5.1)
[2020-12-23] MEDS: AMIODARONE 200 MG TABLET PO SCH (08:13)
[2020-12-23] MEDS: ASCORBIC ACID 500 MG TABLET PO SCH (08:13)
[2020-12-23] MEDS: ZINC GLUCONATE 50 MG TABLET PO SCH (08:13)
[2020-12-23] MEDS: LACOSAMIDE 50 MG TABLET PEG SCH (08:38)
[2020-12-23] MEDS ORDERED: MORPHINE 4 MG/1 ML VIAL IV PRN (09:51)
[2020-12-23] MEDS ORDERED: LORazepam 2 MG/1 ML VIAL IV PRN (09:51)
[2020-12-24 04:10] VITALS: BP 0/0
== END 2020-12-23 22:36 | disposition expired | DRG 870 ==
LOC: EDBD → EDUNIT# → N.ED 06:21 → N.CC 08:07 → SUATTDRO 08:26 → N.EDINP 08:26 → N.ICU 12-18 17:03 → N.5E 12-22 18:56
PROVIDERS: ADMIT Internal Medicine; ATTEND Internal Medicine